=== PATIENT | female | born 1965 | race Caucasian/White ===

== ENCOUNTER 2017-02-12 20:19 | Emergency (ER) | payer OTHER ==
[~2017-02-12] VITALS: Ht 170.2 cm; Wt 125.5 kg
[2017-02-12] MEDS ORDERED: FURO20TA2 (20:55)
[2017-02-12] MEDS ORDERED: QUIN20TA17 (20:55)
[2017-02-12] MEDS ORDERED: FENO54TA2 (20:55)
[2017-02-12] MEDS ORDERED: FREEMIS42 (20:55)
[2017-02-12] MEDS ORDERED: AZEL0.1S3 (20:55)
[2017-02-12] MEDS ORDERED: FREETES (20:55)
[2017-02-12] MEDS ORDERED: GABA-283 (20:55)
[2017-02-12] MEDS ORDERED: D3-5CAP (20:55)
[2017-02-12] MEDS ORDERED: ASPI1TAB15 (20:55)
[2017-02-12] MEDS ORDERED: DULO1CAP3 (20:55)
[2017-02-12] MEDS ORDERED: OMEP20CA3 (20:55)
[2017-02-12] MEDS ORDERED: ONDA4TAB6 (20:55)
[2017-02-12] MEDS ORDERED: KETOROLAC 30 MG/ML VIAL (J1885) IV ONE (22:45)
[2017-02-12] MEDS ORDERED: NS 1,000 ML IV ONE (22:45)
[2017-02-12] MEDS ORDERED: DEXTROSE 50% 50 ML SYRINGE IV STA (23:14)
[2017-02-12 23:16] LABS: BASO # 0.1 K/mm3 (0.0-0.2); BASO % 0.8 % (0.0-1.0); EOS # 0.2 K/mm3 (0.0-0.50); EOS % 2.8 % (0.0-3.0); LARGE UNSTAINED CELL # 0.2 K/mm3 (0.0-0.4); LYMPH # 2.5 K/mm3 (1.5-4.5); MEAN CORPUSCULAR HEMOGLOBIN 30.2 pg (27.0-33.0); MEAN CORPUSCULAR HGB CONC 35.9 g/dl (32.0-36.5); MEAN CORPUSCULAR VOLUME 84.1 fl (80.0-96.0); MONO # 0.5 K/mm3 (0.0-0.8); MONO % 6.2 % (0.0-5.0); NEUTROPHILS % 54.2 % (36.0-66.0); PLATELET COUNT, AUTOMATED 254 k/mm3 (150-450); RED CELL DISTRIBUTION WIDTH 13.1 % (11.5-14.5); WHITE BLOOD COUNT 7.4 K/mm3 (4.0-10.0)
[2017-02-12 23:31] LABS: ALBUMIN/GLOBULIN RATIO 1.08 (1.00-1.93); BILIRUBIN,DIRECT 0.2 MG/DL (0.0-0.2); BILIRUBIN,TOTAL 0.6 MG/DL (0.2-1.0); CALCIUM LEVEL 9.3 MG/DL (8.5-10.1); CREATININE FOR GFR 1.18 MG/DL (0.55-1.02); GLOMERULAR FILTRATION RATE 50.8 (>51); POTASSIUM SERUM 3.6 MEQ/L (3.5-5.1); TOTAL PROTEIN 7.7 GM/DL (6.4-8.2)
[2017-02-12] MEDS ORDERED: ISOVUE-370 76% 100ML VIAL (Q9967) As Ordered ONE (23:34)
--- NOTE | 2017-02-13 00:50 | REPUSA ---
CLINICAL HISTORY: Abdominal pain. TECHNIQUE: Multiple axial, sagittal and coronal CT images were obtained through the abdomen and pelvi s after administration of intravenous contrast material. COMMENTS: The liver is moderately enlarged with decreased attenuation without mass or defect. There is no intra or extrahepatic biliary ductal dilatation. The spleen is mildly enlarged. The gallbladder is within normal limits. The pancreas is of normal contour and attenuation characteristics. There is no evidenc e of adrenal mass. Moderate left renal atrophy. This is a chronic finding. 1.5 cm left renal cyst. Both kidneys demonstrate prompt and equal nephrograms. There is no evidence of renal or ureteral mass. No renal or ureteral calculi are identified. There is no hydroureter or hydronephrosis. No evidence for appendicitis. Uncomplicated colonic diverticulosis. Diffuse thickening of the ascendi ng and transverse colon. No evidence for small or large bowel obstruction. There is no evidence of ab dominal ascites or lymphadenopathy. There is no evidence of intrinsic or extrinsic bladder mass. There is no pelvic ascites or lymphadeno violeta. Images of the lung bases show no evidence of pleural or parenchymal mass. There are no pleural effusi ons. The bony structures are free of lytic or blastic lesions. Multilevel degenerative changes are seen in volving the thoracolumbar spine. Scattered calcifications are seen involving the aorta and major branches compatible with atherosclero sis. IMPRESSION: Diffuse thickening of the ascending and transverse colon. Mild colitis. No perforation or abscess for mation. Cholecystectomy. Hepatomegaly with fatty liver infiltration. Fat containing umbilical hernia without incarceration. Chronic left renal atrophy. Thank you for your kind referral of this patient.
[2017-02-13] MEDS ORDERED: CIPR-249 PO (01:30)
[2017-02-13] MEDS ORDERED: FLAG500T PO (01:31)
[2017-02-13 02:01] VITALS: BP 133/68
[2017-03-22] MEDS ORDERED: NOVOINJ3 SQ (16:38)
[2017-03-22] MEDS ORDERED: MELO7.5T7 PO (22:13)
== END 2017-02-13 02:03 | disposition home or self-care (01) ==
LOC: M ED 20:19
DX: K52.9 Noninfective gastroenteritis and colitis, unspecified (principal); Z90.49 Acquired absence of other specified parts of digestive tract; K76.0 Fatty (change of) liver, not elsewhere classified; K42.9 Umbilical hernia without obstruction or gangrene; N26.9 Renal sclerosis, unspecified; E11.9 Type 2 diabetes mellitus without complications; I10 Essential (primary) hypertension; E78.5 Hyperlipidemia, unspecified; K21.9 Gastro-esophageal reflux disease without esophagitis; K57.90 Diverticulosis of intestine, part unspecified, without perforation or abscess without bleeding; Z87.442 Personal history of urinary calculi; G47.33 Obstructive sleep apnea (adult) (pediatric); Z87.891 Personal history of nicotine dependence; Z79.82 Long term (current) use of aspirin; Z79.899 Other long term (current) drug therapy
CPT/HCPCS: 74177; 80048; 80076; 81001; 83690; 85025; 96374; 96375; 99283; J1885; Q9967

== ENCOUNTER 2017-06-09 19:04 | Emergency (ER) | payer OTHER ==
[2017-06-09 22:09] LABS: BASO # 0.1 10^3/uL (0.0-0.2); BASO % 1.1 % (0.0-1.0); EOS # 0.1 10^3/uL (0.0-0.50); EOS % 1.9 % (0.0-3.0); HEMATOCRIT 40.6 % (36.0-47.0); HEMOGLOBIN 13.8 g/dl (12.0-16.0); IMMATURE GRANULOCYTE % 0.5 % (0-0); LYMPH # 2.4 10^3/uL (1.5-4.5); LYMPH % 31.6 % (24.0-44.0); MEAN CORPUSCULAR HEMOGLOBIN 28.2 pg (27.0-33.0); MEAN CORPUSCULAR VOLUME 82.9 fl (80.0-96.0); MONO # 0.5 10^3/uL (0.0-0.8); MONO % 6.4 % (0.0-5.0); NEUTROPHILS # 4.4 10^3/uL (1.8-7.7); NEUTROPHILS % 58.5 % (36.0-66.0); PLATELET COUNT, AUTOMATED 217 10^3/uL (150-450); RED CELL DISTRIBUTION WIDTH 13.4 % (11.5-14.5); WHITE BLOOD COUNT 7.5 10^3/uL (4.0-10.0)
[2017-06-09 22:42] LABS: ALBUMIN 4.1 GM/DL (3.2-5.2); ALBUMIN/GLOBULIN RATIO 1.24 (1.00-1.93); ALKALINE PHOSPHATASE 50 U/L (45-117); ALT/SGPT 34 U/L (12-78); ANION GAP 7 MEQ/L (8-16); AST/SGOT 26 U/L (7-37); BILIRUBIN,DIRECT 0.2 MG/DL (0.0-0.2); BILIRUBIN,TOTAL 0.9 MG/DL (0.2-1.0); BLOOD UREA NITROGEN 13 MG/DL (7-18); CARBON DIOXIDE LEVEL 29 MEQ/L (21-32); CHLORIDE LEVEL 105 MEQ/L (98-107); CREATININE FOR GFR 1.13 MG/DL (0.55-1.02); GLOMERULAR FILTRATION RATE 53.4 (>51); GLUCOSE, FASTING 83 MG/DL (70-105); LIPASE 162 U/L (73-393); POTASSIUM SERUM 3.8 MEQ/L (3.5-5.1); SODIUM LEVEL 141 MEQ/L (136-145); TOTAL PROTEIN 7.4 GM/DL (6.4-8.2)
[2017-06-09] MEDS ORDERED: ISOVUE-370 76% 100ML VIAL (Q9967) As Ordered (22:44)
[2017-06-09] MEDS: ONDANSETRON 4MG/2ML VIAL (J2405) IV (22:46)
[2017-06-09] MEDS: NS 1,000 ML IV (22:46)
[2017-06-09] MEDS: MORPHINE 4 MG/ML 1ML SYRINGE IV (22:47)
[2017-06-09 23:45] LABS: KETONE, URINE AUTO RFX NEGATIVE (NEGATIVE); MUCUS, URINE RFX SMALL (NEGATIVE); NITRITE, URINE AUTO RFX NEGATIVE (NEGATIVE); RBC, URINE AUTO RFX 2 /HPF (0-3); SPECIFIC GRAVITY UR AUTO RFX 1.017 (1.002-1.035); SQUAM EPITHELIAL CELL UR AURFX 6 /HPF (0-6); WBC, URINE AUTO RFX 8 /HPF (0-3)
[2017-06-10 00:08] LABS: LEUKOCYTE ESTERASE UR AUTO RFX 1+ (NEGATIVE)
== END 2017-06-10 00:28 | disposition home or self-care (01) ==
LOC: M ED 06-10 00:28
DX: R10.11 Right upper quadrant pain (principal); R10.31 Right lower quadrant pain; G47.30 Sleep apnea, unspecified; Z87.442 Personal history of urinary calculi; E11.9 Type 2 diabetes mellitus without complications; K76.0 Fatty (change of) liver, not elsewhere classified; Z79.82 Long term (current) use of aspirin; Z79.4 Long term (current) use of insulin; Z79.899 Other long term (current) drug therapy
CPT/HCPCS: J2405

== ENCOUNTER 2019-03-07 10:35 | Inpatient (IN) | payer OTHER ==
[~2019-03-07] VITALS: Ht 167.6 cm; Wt 120.0 kg
[~2019-03-07 10:35] MED LIST: ASPI1TAB15 PO; AZEL0.1S3; BENT10CA PO; CIPR-249 PO; CLAR10CA3 PO; D3-5CAP PO; DICY20TA11 PO; DULO1CAP6; DULO30CA9 PO; FENO54TA2; FERR1TAB8; FLAG500T PO; FREEMIS42; FREETES; FURO20TA2; GABA-845 PO; INSULADS INJ; LIDO5DIS41 TD; MELO7.5T7 PO; NOVOINJ3 SQ; OMEP10CASR PO; OMEP20CA4; ONDA4TAB6; OXYC1TAB23 PO; QUIN1TAB3 PO
[2019-03-07 11:12] VITALS: BP 140/70
[2019-03-07] MEDS ORDERED: OMEP20CA4 PO (11:45)
[2019-03-07] MEDS ORDERED: CETI10TA8 PO (11:45)
[2019-03-07] MEDS ORDERED: ADME100I SC (11:45)
[2019-03-07] MEDS ORDERED: BASA100I SC (11:45)
[2019-03-07] MEDS ORDERED: IBUP80TA PO (11:45)
[2019-03-07] MEDS ORDERED: GLUCAGON FOR INJ 1 MG VIAL (J1610) SC PRN (12:30)
[2019-03-07] MEDS ORDERED: GLUCOSE 4 GM CHEW TABLET PO PRN (12:30)
[2019-03-07] MEDS ORDERED: DEXTROSE 50% 50 ML SYRINGE IV PRN (12:30)
--- NOTE | 2019-03-07 12:49 | CR.PDOC ---
General Date of Consultation: Mar 07, 2019 Consultation CONSULT FOR: Orthopedic Surgery REASON FOR CONSULT: Medical Optimization HISTORY OF PRESENT ILLNESS: This is a 54 year old female who 7 days ago had a low blood sugar while climbing 3 steps into her house and had a fall backwards. Her son heard the fall and provided glucose tablets which resolved her symptoms. She denies any seizure or loss of consciousness but does state she hit her head. She had significant pain and presented to urgent care who referred to orthopedic where she was seen 6 days ago. It was at that time that she was planned for elective admission and surigcal correction of broken left wrist. Patient continues to complain of pain in her left leg at this time and pressure while ambulating, she has been mostly bedridden since her fall. She is not very active at her baseline limited by fibromyalgia but denies any cardiac history. She sates she had a stress test greater than 10 years ago which was normal and denies exertional symptoms.Otherwise patient denies weight loss, hair loss, headache, visual changes, chest pain, shortness of breath, cough, nausea, vomiting, diarrhea, abdominal pain, muscle aches, worsening arthritis, change in moo PAST MEDICAL HISTORY: 1.Hypertension. 2. Dyslipidemia. 3. diabetes mellitus. 4. Gastroesophageal reflux disease 5. Obstructive sleep apnea on CPAP 6. Neuropathy 7. COPD 8. Fibromyalgia 9. Seasonal allergies 10. Diverticulosis. HOME MEDICATIONS: Please see below. ALLERGIES: Please see below PAST SURGICAL HISTORY: 1. Colonoscopy and endoscopy. 2. Cholecystectomy. 3. Cervical diskectomy with 3 surgeries. 4. Tonsilectomy 5. Tubal Ligation SOCIAL HISTORY: Lives with:so, Employment: not working, Tobacco use:formaer 20 pack year. ETOH: rare, 2 drinks on birthday, Illicit drug use: denies, CODE STATUS: full code FAMILY HISTORYReviewed and noncontributor REVIEW OF SYSTEMS:10 systems reviewed and negative other than HP PHYSICAL EXAMINATION: VITAL SIGNS: Please see below GENERAL:Pleasant obese female sitting up in bed awake alert oriented speaking in complete sentences no acute distres HEENT:Moist mucous membranes no elevation in CV, mild right eye subconjunctival hemorrhage CARDIOVASCULAR:S1 S2 regular no additional heart sounds appreciated RESPIRATORY:Clear to auscultation bilaterally ABDOMINAL:Bowel sounds present abdomen soft and nontende, obese EXTREMITIES:No clubbing cyanosis or apolinar, there is a right pretibial abrasion, ecchymosis bilaterally NEUROLOGICAL:Spontaneously moves all 4 extremities cranial 2 through 12 grossly intact no gross focal deficits appreciate PSYCHOLOGICAL:Appropriat LABORATORY DATA: See below. MICROBIOLOGY: Please see below. IMAGING:non ASSESSMENT & PLAN: This is a54 year old female status post fall 1 week ago for elective admission for Left wrist surger. PROBLEMS: 1Fall: Appears to be secondary to hypoglycemia, patient has been trying to lose weight and has been titrating down her insulin dose at home but believes in this process she has at times taken too much. Will place on sliding scale only, check an A1c. Given that she has had a fall with head trauma I will check CT head and CT cervical spine given her acute on chronic neck pain. I will also check plain films or right ankle, tib/fib and knee 2Wrist fracture:In terms of risk stratification, we will follow up the are mentioned workup. I will also check an EKG. Patient denies any significant cardiac history of negative stress test greater than 10 years ago her baseline functional status is quite limited secondary to fibromyalgia. I suspect she is at moderate risk for perioperative complication however should her EKG the unchanged or unremarkable no further testing required prior to surger 3Peripheral neuropathy: Continue with Neurontin secondary to diabete 4. Diabetes mellitus: As outlined above 5. Seasonal allergies: Continue with Zyrtec 6. Gastroesophageal reflux disease: Continue with omeprazole 7. Fibromyalgia: Continue with duloxetine DVT PROPHYLAXISAs per orthopedic surger Thank you for this interesting consult, we will continue to follow along with you. Please Vocera secure text or call with any specific questions. Vital Signs/I&O Vital Signs Date Time Temp Pulse Resp B/P (MAP) Pulse Ox O2 Delivery O2 Flow Rate FiO2 03/07/19 11:12 97.6 87 18 140/70 (93) 97 Room Air Laboratory Data Labs 24H Laboratory Tests 2 03/07/19 12:03: Bedside Glucose (Misc Panel) 217H Allergies Coded Allergies: No Known Allergies (Unverified , 02/12/17) Home Medications Scheduled Aspirin (Aspirin EC) 81 Mg Tab, 81 MG PO DAILY, (Reported) Cetirizine HCl (Cetirizine HCl) 10 Mg Tablet, 10 MG PO DAILY, (Reported) Cholecalciferol (Vitamin D3) (D3-50) 50,000 Unit Cap, 50,000 UNIT PO QMONTH, (Reported) Duloxetine Hcl (Duloxetine HCl) 30 Mg Cap, 30 MG PO DAILY, (Reported) Gabapentin (Gabapentin) 400 Mg Cap, 400 MG PO TID, (Reported) Insulin Glargine,Hum.rec.anlog (Basaglar Kwikpen U-100) 100 Unit/1 Ml Insuln.pen, 80 UNIT SC BID, (Reported) Insulin Lispro (Admelog) 100 Unit/1 Ml Vial, 1 DOSE SC ACHS, (Reported) PER SLIDING SCALE Omeprazole (Omeprazole) 20 Mg Capsule.dr, 20 MG PO BID, (Reported) Quinapril Hcl (Quinapril HCl) 20 Mg Tab, 20 MG PO DAILY, (Reported) Scheduled PRN Dicyclomine HCl (Dicyclomine HCl) 20 Mg Tablet, 20 MG PO Q6H PRN for ABDOMINAL PAIN, (Reported) Ibuprofen (Ibuprofen) 800 Mg Tablet, 800 MG PO TID PRN for PAIN, (Reported) Oxycodone HCl/Acetaminophen (Oxycodone-Acetaminophen 5-325) 1 Each Tablet, 1 TAB PO QID PRN for PAIN , (Reported) ISHAN FALL MD Mar 07, 2019 12:49
--- NOTE | 2019-03-07 13:01 | REP ---
Right knee radiographs: Four views. History: Injury in a fall. Findings: The patient was unable to position for sunrise view. Four views right knee demonstrate mild patellofemoral spur formation. There is diffuse osteopenia. No fracture or subluxation is seen. Impression: Mild spurring. Diffuse osteopenia. No fracture noted. [place] view could not be obtained. Electronically Signed by Sotero Oliver MD 03/07/2019 12:53 P
--- NOTE | 2019-03-07 13:02 | REP ---
Right tib-fib series: Four views. History: Injury in a fall. Findings: There is mild soft tissue swelling anteromedially. No fractures seen. Achilles and plantar calcaneal spurring is noted. Minimal vascular calcification is seen. Patellar spurring is noted. Impression: No fracture noted. Electronically Signed by Sotero Oliver MD 03/07/2019 12:54 P
--- NOTE | 2019-03-07 13:26 | REP ---
Right ankle series: Four views. History: Injury in a fall. Findings: Four views right ankle demonstrate prominent Achilles and plantar calcaneal spurring. Ankle mortise is intact. There is subcortical radiolucency in the medial talar dome consistent with cyst formation. This is not an acute abnormality. It may reflect osteochondritis desiccans. Mild tibiotalar spurring. Impression: No acute bony abnormality. There is mild lateral soft tissue swelling. Heel spurring is noted. Subcortical cyst formation is seen in the medial talar dome. Electronically Signed by Sotero Oliver MD 03/07/2019 06:24 P
[2019-03-07 13:37] LABS: HEMATOCRIT 36.9 % (36.0-47.0); HEMOGLOBIN 12.3 g/dl (12.0-15.5); MEAN CORPUSCULAR HGB CONC 33.3 g/dl (32.0-36.5); PLATELET COUNT, AUTOMATED 228 10^3/uL (150-450); RED BLOOD COUNT 4.24 10^6/uL (4.00-5.40); WHITE BLOOD COUNT 6.7 10^3/uL (4.0-10.0)
[2019-03-07] MEDS: HumaLOG INSULIN (NovoLOG) PER UNIT SC SCH ×3 (13:55→21:00)
[2019-03-07 14:27] LABS: ALBUMIN 3.1 GM/DL (3.2-5.2); ALT/SGPT 21 U/L (12-78); BILIRUBIN,TOTAL 1.2 MG/DL (0.2-1.0); BLOOD UREA NITROGEN 11 MG/DL (7-18); CALCIUM LEVEL 8.8 MG/DL (8.5-10.1); CARBON DIOXIDE LEVEL 30 MEQ/L (21-32); CHLORIDE LEVEL 104 MEQ/L (98-107); CREATININE FOR GFR 0.82 MG/DL (0.55-1.30); GLOMERULAR FILTRATION RATE > 60.0 (>51); GLUCOSE, FASTING 258 MG/DL (70-100); POTASSIUM SERUM 3.7 MEQ/L (3.5-5.1); SODIUM LEVEL 140 MEQ/L (136-145); TOTAL PROTEIN 5.9 GM/DL (6.4-8.2)
[2019-03-07 14:39] LABS: HEMOGLOBIN A1c 7.2 %
[2019-03-07] MEDS ORDERED: PERCOCET 5MG/325MG TAB PO PRN ×2 (15:00)
[2019-03-07] MEDS ORDERED: oxyCODONE 5MG TAB PO PRN (15:00)
--- NOTE | 2019-03-07 15:07 | REP ---
Two views chest: 03/07/2019. Indication: Preoperative assessment. Comparison: None. Findings: The lungs are clear. There is no pleural effusion or pneumothorax. Cardiac silhouette is borderline enlarged. Postoperative sequelae of the cervical spine are noted status post ACDF. Impression: No acute cardiopulmonary disease. Electronically Signed by Beau Foss DO 03/07/2019 02:59 P
--- NOTE | 2019-03-07 15:11 | REP ---
CT brain: 03/07/2019. Indication: Head trauma. Technique: Unenhanced axial CT images of the brain were obtained from skull base to vertex. Findings: There is no intracranial hemorrhage, acute cortical infarction, mass effect, hydrocephalus or acute calvarial fracture. Impression: No acute intracranial process. Electronically Signed by Beau Foss DO 03/07/2019 03:02 P
--- NOTE | 2019-03-07 15:14 | ECGEPIP ---
[facility] Test Date: 2019-03-07 Pat Name: PIA GARSIA Department: Room: [place] [address] Gender: Female Poiser: ZUHAIR : 1965 Requested By: ISHAN FALL Order Number: [id number] Reading MD: Corazon Mckeon Measurements Intervals [place] Rate: 78 P: 40 FL: 190 QRS: 9 QRSD: 91 T: 17 QT: 378 QTc: 432 Interpretive Statements SINUS RHYTHM 1ST DEGREE BLOCK LOW QRS VOLTAGE IN PRECORDIAL LEADS NONSPECIFIC STT-WAVE ABNORMALITY NO PRIOR Electronically Signed on 03-07-2019 15:13:36 EDT by Corazon Mckeon
--- NOTE | 2019-03-07 15:18 | REP ---
CT cervical spine: 03/07/2019. Indication: Cervical spine trauma. Comparison: None. Technique: Axial unenhanced CT images of the cervical spine were obtained with sagittal and coronal reconstructions provided. Findings: The patient is status post C5 - C7 ACDF with the surgical hardware intact. The presence of the hardware renders evaluation of the anatomy adjacent suboptimal secondary to streak artifact. There is straightening of the cervical lordosis. There is no acute fracture. There is no significant subluxation/dislocation. The spinal canal appears widely patent. The left palatine tonsil is prominent with a few tonsils noted. No area of low attenuation is present within the tonsils. The visualized lungs are clear. Impression: No fracture or additional acute post traumatic osseous injuries of the cervical spine. Electronically Signed by Beau Foss DO 03/07/2019 03:10 P
[2019-03-07] MEDS: DULoxetine 30 MG CAP (CYMBALTA) PO SCH (15:53)
[2019-03-07] MEDS: GABAPENTIN 400 MG CAP PO SCH ×2 (15:53→21:22)
[2019-03-07] MEDS: OMEPRAZOLE 20 MG CAP PO SCH ×2 (15:53→21:22)
[2019-03-07] MEDS: CETIRIZINE (ZyrTEC) 10 MG TAB PO SCH (15:54)
[2019-03-07] MEDS: ceFAZolin SOD 1 GM in D5W MINI-BAG PLUS 50 ML IV SCH ×2 (15:54→21:22)
[2019-03-07] MEDS: oxyCODONE 5MG TAB PO PRN ×2 (15:55→21:24)
[2019-03-07 17:05] LABS: INR 1.05; PARTIAL THROMBOPLASTIN TIME 32.6 SECONDS (25.0-38.4); PROTHROMBIN TIME 13.4 SECONDS (11.8-14.0)
[2019-03-07 17:11] LABS: BLOOD UREA NITROGEN 11 MG/DL (7-18); CALCIUM LEVEL 8.6 MG/DL (8.5-10.1); CARBON DIOXIDE LEVEL 30 MEQ/L (21-32); CHLORIDE LEVEL 103 MEQ/L (98-107); CREATININE FOR GFR 0.94 MG/DL (0.55-1.30); GLOMERULAR FILTRATION RATE > 60.0 (>51); GLUCOSE, FASTING 183 MG/DL (70-100); POTASSIUM SERUM 3.2 MEQ/L (3.5-5.1); SODIUM LEVEL 140 MEQ/L (136-145)
[2019-03-07 20:17] VITALS: BP 179/68
[2019-03-07 20:22] VITALS: BP 168/88
[2019-03-08] MEDS: oxyCODONE 5MG TAB PO PRN ×3 (01:38→21:35)
[2019-03-08 05:33] VITALS: BP 96/65
[2019-03-08] MEDS: ceFAZolin SOD 1 GM in D5W MINI-BAG PLUS 50 ML IV SCH ×3 (05:59→21:36)
[2019-03-08] MEDS: LR 1,000 ML IV SCH ×2 (06:08→21:35)
[2019-03-08] MEDS: HumaLOG INSULIN (NovoLOG) PER UNIT SC SCH ×4 (07:30→21:36)
[2019-03-08] MEDS: OMEPRAZOLE 20 MG CAP PO SCH ×2 (07:39→21:35)
[2019-03-08] MEDS: CETIRIZINE (ZyrTEC) 10 MG TAB PO SCH (07:39)
[2019-03-08] MEDS: GABAPENTIN 400 MG CAP PO SCH ×3 (07:39→21:35)
[2019-03-08] MEDS: DULoxetine 30 MG CAP (CYMBALTA) PO SCH (07:39)
--- NOTE | 2019-03-08 07:51 | IPNPDOC ---
Date Seen Progress Note she is at moderate risk for perioperative complication however she is presently medically optimized no further testing required prior to surgery VS, I&O, 24H, [place] Vital Signs/I&O Vital Signs Date Time Temp Pulse Resp B/P (MAP) Pulse Ox O2 Delivery O2 Flow Rate FiO2 03/08/19 06:29 16 03/08/19 05:33 96.0 83 96/65 (75) 97 Room Air I&O- Last 24 Hours up to 6 AM 03/08/19 06:00 Intake Total 1200 ml Output Total 0 ml Balance 1200 ml Laboratory Data 24H LABS Laboratory Tests 2 03/07/19 12:03: Bedside Glucose (Misc Panel) 217H 03/07/19 13:15: Nucleated Red Blood Cells % (auto) 0.0, Anion Gap 6L, Glomerular Filtration Rate > 60.0, Estimated Mean Plasma Glucose 160H, Hemoglobin A1c 7.2, Calcium Level 8.8, Total Bilirubin 1.2H, Aspartate Amino Transf (AST/SGOT) 18, Alanine Aminotransferase (ALT/SGPT) 21, Alkaline Phosphatase 83, Total Protein 5.9L, Albumin 3.1L, Albumin/Globulin Ratio 1.11 03/07/19 16:20: Anion Gap 7L, Glomerular Filtration Rate > 60.0, Calcium Level 8.6, Erythrocyte Sedimentation Rate 52H, Prothrombin Time 13.4, Prothromb Time International Ratio 1.05, Activated Partial Thromboplast Time 32.6 03/07/19 16:57: Bedside Glucose (Misc Panel) 230H 03/07/19 20:18: Bedside Glucose (Misc Panel) 218H 03/08/19 07:24: Bedside Glucose (Misc Panel) 156H CBC/BMP Laboratory Tests 03/07/19 13:15 03/07/19 16:20 ISHAN FALL MD Mar 08, 2019 07:51
[2019-03-08 10:56] LABS: APPEARANCE, URINE CLEAR (CLEAR); BACTERIA, URINE AUTO NEGATIVE (NEGATIVE); BILIRUBIN, URINE AUTO NEGATIVE (NEGATIVE); BLOOD, URINE BLOOD NEGATIVE (NEGATIVE); CALCIUM OXALATE CRYSTALS SMALL; COLOR, URINE YELLOW (YELLOW); GLUCOSE, URINE (UA) AUTO NEGATIVE (NEGATIVE); KETONE, URINE AUTO NEGATIVE (NEGATIVE); LEUKOCYTE ESTERASE, URINE AUTO NEGATIVE (NEGATIVE); MUCUS, URINE SMALL (NEGATIVE); NITRITE, URINE AUTO NEGATIVE (NEGATIVE); PROTEIN, URINE AUTO NEGATIVE (NEGATIVE); RBC, URINE AUTO 2 /HPF (0-3); SPECIFIC GRAVITY URINE AUTO 1.019 (1.002-1.035); SQUAMOUS EPITHELIAL CELL UR AU 2 /HPF (0-6); UROBILINOGEN, URINE AUTO 0.2 mg/dL (0.0-2.0); WBC, URINE AUTO 4 /HPF (0-3)
[2019-03-08 12:29] VITALS: BP 136/60
[2019-03-08] MEDS ORDERED: fentaNYL 100 MCG/2 ML INJECTION (J3010) As Ordered ONE (13:47)
[2019-03-08] MEDS ORDERED: MIDAZOLAM INJ 2 MG/2 ML VIAL (J2250) As Ordered ONE ×2 (13:47→14:30)
[2019-03-08] MEDS ORDERED: fentaNYL 100 MCG/2 ML INJECTION (J3010) IV ONE (14:30)
[2019-03-08] MEDS ORDERED: PROPOFOL 200 MG/20 ML VIAL As Ordered ONE (14:30)
[2019-03-08] MEDS ORDERED: ROCURONIUM BROMIDE 50 MG/5 ML VIAL As Ordered ONE (14:30)
[2019-03-08] MEDS ORDERED: ONDANSETRON 4MG/2ML VIAL (J2405) As Ordered ONE (14:30)
[2019-03-08] MEDS ORDERED: LIDOCAINE 2% INJ 100 MG/5 ML SDV (FOR ANES.) As Ordered ONE (14:30)
[2019-03-08] MEDS ORDERED: SUGAMMADEX SODIUM 500 MG/5 ML VIAL (BRIDION) As Ordered ONE (14:30)
[2019-03-08] MEDS ORDERED: dexameTHASONE 4 MG/ML 1ML VIAL (J1100) As Ordered ONE (14:30)
[2019-03-08] MEDS ORDERED: fentaNYL 250 MCG/5 ML INJECTION (J3010) As Ordered ONE (14:30)
[2019-03-08] MEDS ORDERED: METOCLOPRAMIDE INJ 10MG/2ML VIAL (J2765) As Ordered ONE (14:30)
[2019-03-08] MEDS ORDERED: MIDAZOLAM INJ 2 MG/2 ML VIAL (J2250) IV ONE (14:30)
[2019-03-08] MEDS ORDERED: ROPIvacaine 0.5% 30 ML INJECTION (J2795 PER 1MG) ONE (15:33)
[2019-03-08] MEDS ORDERED: LIDOCAINE 1% MDV 20ML VIAL ONE (15:33)
[2019-03-08] MEDS ORDERED: dexameTHASONE 10 MG/1 ML VIAL PRES.FREE (J1100) ONE (15:33)
[2019-03-08] MEDS ORDERED: ceFAZolin 2 GM/D5W 50 ML IV BAG (J0690 PER 500MG) As Ordered ONE (16:11)
[2019-03-08] MEDS ORDERED: ACETAMINOPHEN 1000MG 100ML IV BTL (OFIRMEV) (J0131 PER 10MG) As Ordered ONE (16:16)
[2019-03-08] MEDS ORDERED: ePHEDrine SULFATE 25 MG/5 ML(5MG/ML) SYRINGE As Ordered ONE (17:04)
[2019-03-08] MEDS ORDERED: PHENYLephrine HCL 500 MCG/5 ML (100MCG/ML) SYRINGE (J2370) As Ordered ONE (17:04)
[2019-03-08] MEDS ORDERED: PERCOCET 5MG/325MG TAB PO PRN (17:45)
[2019-03-08] MEDS ORDERED: LR 1,000 ML IV SCH (17:45)
[2019-03-08] MEDS ORDERED: ONDANSETRON 4MG/2ML VIAL (J2405) IV PRN (17:45)
[2019-03-08] MEDS ORDERED: HYDROMORPHONE HCL 0.5 MG/ 0.5 ML SYRINGE (J1170 PER 1) IV PRN (17:45)
[2019-03-08] MEDS ORDERED: fentaNYL 100 MCG/2 ML INJECTION (J3010) IV PRN (17:45)
--- NOTE | 2019-03-08 18:08 | REP ---
Left wrist: 24 views: History: Intraoperative imaging. ORIF distal radius. 61 seconds of fluoroscopy time is reported. Findings: A sequence of 24 last image hold fluoroscopically obtained spot radiographs of the left wrist document open reduction and internal fixation volar fusion plating. Electronically Signed by Sotero Oliver MD 03/08/2019 07:51 P
[2019-03-08 18:22] VITALS: BP 135/69
--- NOTE | 2019-03-08 18:26 | RO ---
DATE OF PROCEDURE: 03/08/2019 PREPROCEDURE DIAGNOSIS: Left intraarticular distal radius fracture, comminuted. POSTPROCEDURE DIAGNOSIS: Left intraarticular distal radius fracture, comminuted. PROCEDURE: Left open reduction internal fixation distal radius. SURGEON: Clyde Peñaloza MD MERCHANDISING EXECUTION MANAGER: Miryea Kuhn; she was instrumental for eason portion of the procedure, for retraction. ANESTHESIA: General. INDICATIONS: This is a 54-year-old female who presented with multiple comorbidities with a very comminuted and displaced distal radius fracture. Due to the very distal extent, I felt that closed reduction would not be adequate in order to maintain fixation, and it was well outside the acceptable limitations. All of the risks and benefits were discussed, including but not limited to infection, damage to surrounding structures, malunion, nonunion. The patient expressed understanding and in agreement with these plans. She had to be direct admitted due to her multiple comorbidities for operative clearance, so she was admitted on 03/07/2019 and cleared by medicine on 03/08/2019. COMPLICATIONS: None. PREOPERATIVE ANTIBIOTICS: The patient had been on Ancef for left lower extremity cellulitis but also got 2 grams of Ancef prior to start of the surgery. TOURNIQUET TIME: 51 minutes. DESCRIPTION OF PROCEDURE: The patient was taken back to the operating room (OR) and was supine on the stretcher. She was moved over to the operative bed where she underwent general anesthesia, at which point we prepped and draped the left arm in the usual fashion. At which point, we had a time-out to confirm site, side and surgery. Once all in agreement, we elevated the tourniquet up to 250 mmHg. We then made a longitudinal incision over the flexor carpi radialis (FCR) tendon. We incised the FCR sheath and retracted the FCR tendon radially, at which point we excised the deeper portion of the sheath. We then encountered flexor pollicis longus (FPL), which was retracted ulnarly. We then encountered pronator quadratus, which was lifted off the proximal shaft of the radius along with the intraarticular portions. We then identified brachial radialis and released it from the radial styloid, careful to differentiate it from the first dorsal compartment tendon. Once this was done and we made a closed reduction maneuver with the aid of Dover elevator and direct manipulation, we then used a 1.6 K-wire through the radial styloid to hold the reduction in place. We confirmed this on AP and lateral x-rays. We then picked a two-hole distal radius variable angle Synthes plate. We lined it up on AP and lateral and pinned it into place. We then placed four distal locking screws, two in lunate facet, one in the scaphoid facet, and one in the radial styloid. Once this was done, we confirmed that none of them were in the joint and protruding dorsally, at which point we reduced the plate to the shaft using two cortical screws with a good fixation, and we confirmed alignment on AP and lateral. I was very happy with this reduction. We then irrigated the wound thoroughly, closed pronator quadratus over the plate with #3-0 Vicryl, then subcutaneous tissue with #3-0 Vicryl, and we then stapled the skin closed, placed Adaptic gauze, sterile Webril, and then volar-based splint, and an Omid wrap. The tourniquet was let down at 51 minutes. The patient was then extubated and taken to the post-anesthesia care unit (PACU). POSTOPERATIVE PLAN: The patient will work on pain control. The plan will be to discharge her tomorrow. She will be discharged with 7 days of Keflex for her left lower extremity cellulitis. We will see her back in the office in 2 weeks, at which point we will reevaluate the wound and remove the jb, and convert over to a removable brace which she will wear almost constantly for the next 4 weeks, except for hygiene. And at 6 weeks, we will start weaning her off the brace.
[2019-03-08 19:38] VITALS: BP 126/56
[2019-03-09] MEDS: oxyCODONE 5MG TAB PO PRN ×2 (02:30→06:37)
[2019-03-09 06:00] VITALS: BP 148/88
[2019-03-09] MEDS ORDERED: OXYC-517 PO (06:29)
[2019-03-09] MEDS: ceFAZolin SOD 1 GM in D5W MINI-BAG PLUS 50 ML IV SCH (06:37)
[2019-03-09] MEDS: OMEPRAZOLE 20 MG CAP PO SCH (08:17)
[2019-03-09] MEDS: CETIRIZINE (ZyrTEC) 10 MG TAB PO SCH (08:17)
[2019-03-09] MEDS: DULoxetine 30 MG CAP (CYMBALTA) PO SCH (08:17)
[2019-03-09] MEDS: HumaLOG INSULIN (NovoLOG) PER UNIT SC SCH ×2 (08:19→12:00)
--- NOTE | 2019-03-09 08:26 | IPN ---
DATE OF SERVICE: 03/09/2019 CHIEF COMPLAINT: Postoperative day #1 left distal radius open reduction internal fixation (ORIF). HISTORY OF PRESENT ILLNESS: This 54-year-old female is seen today on the sena postoperative day #1. She feels like the nerve block is slowly wearing off, but there is still a little bit of difficulty left in the shoulder. Other than that, she is comfortable. PHYSICAL EXAMINATION: 54-year-old female. Splint is in situ. No swelling, redness or drainage from the nerve block site. Vital signs are stable. Hands warm and well perfused. She is able to make her fingers flex and extend her thumb. She does have good sensation in the fingers, but slightly altered throughout. ASSESSMENT/PLAN: 54-year-old female who can be discharged home today. Follow up in the office with Dr. Peñaloza. She is well aware of the plan.
--- NOTE | 2019-03-09 08:45 | REP ---
Left wrist: Four views. History: Postop. Findings: Skin jb are noted along the lateral aspect of the wrist adjacent to the distal radius. A screw plate fixation device is seen in place transfixing a comminuted and somewhat impacted distal radial fracture in good position. There is associated soft-tissue swelling. X-rays are taken through overlying splint material. Electronically Signed by Sotero Oliver MD 03/09/2019 08:37 A
[2019-03-09] MEDS: GABAPENTIN 400 MG CAP PO SCH (08:46)
[2019-03-09] MEDS ORDERED: FLUBLOK(EGG FREE)(QUAD)INFLUENZA VACC 0.5ML SYRINGE (90682)18YRS&OLDER IM ONE (09:00)
--- NOTE | 2019-03-11 16:21 | DSES ---
DATE OF ADMISSION: 03/07/2019 DATE OF DISCHARGE: 03/09/2019 ATTENDING PHYSICIAN: Dr. Clyde Peñaloza ADMISSION DIAGNOSIS: Left intra-articular distal radius fracture. OTHER DIAGNOSES: Hypertension, dyslipidemia, diabetes mellitus, gastroesophageal reflux disease (GERD), obstructive sleep apnea and neuropathy, chronic obstructive pulmonary disease (COPD), fibromyalgia, seasonal allergies, and diverticulosis. DISCHARGE DIAGNOSIS: Intra-articular distal left distal radius fracture status post open reduction, internal fixation (ORIF). OPERATION PERFORMED: ORIF left distal radius fracture. HISTORY: This is a 54-year-old female patient who had an episode of hypoglycemia and a fall while at her home about 1 week prior to admission. She was found to have a left distal radius intra-articular fracture. HOSPITAL COURSE: The patient was admitted on the day of surgery and underwent a left distal radius open reduction, internal fixation which was uneventful. She did well in the postoperative period. Pain was controlled on the day of discharge. She will followup with Dr. Peñaloza in the office in 10-14 days. She will resume her preoperative medications and diet. She was given instructions to include but not limited to cast care, wound monitoring and activity modifications. Please refer to the medical record for further details.
== END 2019-03-09 12:40 | disposition home or self-care (01) | DRG 315 ==
LOC: M SDC 10:35 → M MS5PR 10:36
PROVIDERS: ADMIT Orthopaedic Surgery Hand Surgery; ATTEND Orthopaedic Surgery Hand Surgery
PROC: 0PSJ04Z Reposition Left Radius with Internal Fixation Device, Open Approach (ICD-10-PCS; principal; 2019-03-08 12:30)
DX: S52.502A Unspecified fracture of the lower end of left radius, initial encounter for closed fracture (principal); E11.40 Type 2 diabetes mellitus with diabetic neuropathy, unspecified; I10 Essential (primary) hypertension; G47.33 Obstructive sleep apnea (adult) (pediatric); E78.5 Hyperlipidemia, unspecified; M79.7 Fibromyalgia; J44.9 Chronic obstructive pulmonary disease, unspecified; K57.30 Diverticulosis of large intestine without perforation or abscess without bleeding; K21.9 Gastro-esophageal reflux disease without esophagitis; Z79.82 Long term (current) use of aspirin; Z79.899 Other long term (current) drug therapy; Z79.4 Long term (current) use of insulin; W10.9XXA Fall (on) (from) unspecified stairs and steps, initial encounter; Y92.009 Unspecified place in unspecified non-institutional (private) residence as the place of occurrence of the external cause

== ENCOUNTER 2019-10-27 15:56 | Emergency (ER) | payer OTHER ==
[~2019-10-27] VITALS: Ht 167.6 cm; Wt 106.8 kg
[~2019-10-27 15:56] MED LIST changes: +ADME100I SC; +BASA100I SC; +CETI10TA8 PO; +IBUP80TA PO; +OMEP1CAP73; +OMEP1CAP73 PO; -OMEP20CA4; +OXYC-517 PO
[2019-10-27 15:57] VITALS: BP 161/70
[2019-10-27] MEDS ORDERED: IBUP-1022 PO (16:39)
[2019-10-27] MEDS ORDERED: AUGM875T28 PO (16:39)
[2019-10-27] MEDS ORDERED: AUGMENTIN 875 MG TAB PO ONE (16:45)
[2019-10-27] MEDS ORDERED: IBUPROFEN 600MG TAB PO ONE (16:45)
== END 2019-10-27 16:52 | disposition home or self-care (01) ==
LOC: M ED 15:56
DX: K02.9 Dental caries, unspecified (principal)

== ENCOUNTER 2021-11-27 21:39 | Emergency (ER) | payer OTHER ==
[~2021-11-27] VITALS: Ht 167.6 cm; Wt 113.5 kg
[~2021-11-27 21:39] MED LIST changes: +ASPI-546 PO; -ASPI1TAB15 PO; +AUGM875T28 PO; +CETI-25 PO; -CETI10TA8 PO; -DICY20TA11 PO; +DICY20TA20 PO; +FURO20TA2 PO; +GABA-283 PO; -GABA-845 PO; +IBUP-1022 PO; +ZOLO100T PO
[2021-11-27 21:40] VITALS: BP 130/58
[2021-11-28 01:43] LABS: BASO # 0.1 10^3/uL (0.0-0.2); BASO % 1.2 % (0.0-1.0); EOS # 0.1 10^3/uL (0.0-0.5); EOS % 2.2 % (0.0-3.0); HEMATOCRIT 38.2 % (36.0-47.0); HEMOGLOBIN 12.6 g/dl (12.0-15.5); LYMPH # 2.1 10^3/uL (1.5-5.0); MEAN CORPUSCULAR HEMOGLOBIN 28.2 pg (27.0-33.0); MEAN CORPUSCULAR VOLUME 85.5 fl (80.0-96.0); MONO # 0.4 10^3/uL (0.0-0.8); MONO % 5.8 % (2.0-8.0); NEUTROPHILS # 3.7 10^3/uL (1.5-8.5); NEUTROPHILS % 58.2 % (36.0-66.0); PLATELET COUNT, AUTOMATED 186 10^3/uL (150-450); RED BLOOD COUNT 4.47 10^6/uL (4.00-5.40); WHITE BLOOD COUNT 6.4 10^3/uL (4.0-10.0)
[2021-11-28 02:11] LABS: CALCIUM LEVEL 8.7 MG/DL (8.5-10.1); CREATININE FOR GFR 1.11 MG/DL (0.55-1.30); GLOMERULAR FILTRATION RATE 53.7 (>51)
== END 2021-11-28 06:00 | disposition left against medical advice (07) ==
LOC: M ED 21:39
DX: Z53.21 Procedure and treatment not carried out due to patient leaving prior to being seen by health care provider (principal)

== ENCOUNTER 2022-08-27 02:19 | Inpatient (IN) | payer OTHER ==
[2022-08-27] VITALS (8 sets, daily range): BP systolic 118–146; BP diastolic 61–82
[2022-08-27] MEDS ORDERED: KETOROLAC 60MG 2ML VIAL IM ONE (03:00)
[2022-08-27] MEDS ORDERED: MORPHINE 4 MG/ML 1ML VIAL IV ONE (05:40)
[2022-08-27] MEDS ORDERED: NS 1,000 ML IV ONE (05:40)
[2022-08-27 06:23] LABS: BASO # 0.1 10^3/uL (0.0-0.2); BASO % 0.7 % (0.0-1.0); EOS # 0.1 10^3/uL (0.0-0.5); EOS % 1.4 % (0.0-3.0); HEMATOCRIT 36.9 % (36.0-47.0); HEMOGLOBIN 12.1 g/dl (12.0-15.5); LYMPH # 1.9 10^3/uL (1.5-5.0); LYMPH % 23.6 % (24.0-44.0); MEAN CORPUSCULAR HEMOGLOBIN 27.6 pg (27.0-33.0); MEAN CORPUSCULAR HGB CONC 32.8 g/dl (32.0-36.5); MEAN CORPUSCULAR VOLUME 84.1 fl (80.0-96.0); MONO # 0.8 10^3/uL (0.0-0.8); MONO % 9.7 % (2.0-8.0); NEUTROPHILS # 5.2 10^3/uL (1.5-8.5); PLATELET COUNT, AUTOMATED 144 10^3/uL (150-450); RED BLOOD COUNT 4.39 10^6/uL (4.00-5.40); WHITE BLOOD COUNT 8.1 10^3/uL (4.0-10.0)
[2022-08-27] MEDS ORDERED: ERGO500029 PO (06:32)
[2022-08-27] MEDS ORDERED: FLUO10CA18 PO (06:39)
[2022-08-27] MEDS ORDERED: HYDR1CAP25 PO (06:39)
[2022-08-27] MEDS ORDERED: FAMO20TA5 PO (06:39)
[2022-08-27] MEDS ORDERED: LISI20TA33 PO (06:39)
[2022-08-27] MEDS ORDERED: ALBU8.5H PO (06:39)
[2022-08-27] MEDS ORDERED: SOLI5TAB PO (06:39)
[2022-08-27] MEDS ORDERED: GABA600T4 PO (06:40)
[2022-08-27] MEDS ORDERED: NITR100C2 PO (06:42)
[2022-08-27] MEDS ORDERED: HOME MED LIST COMPLETE! XX SCH (06:45)
[2022-08-27 06:51] LABS: ALBUMIN 3.1 G/DL (3.2-5.2); BILIRUBIN,TOTAL 1.3 MG/DL (0.3-1.2); CALCIUM LEVEL 8.7 MG/DL (8.5-10.1); CREATININE FOR GFR 1.11 MG/DL (0.55-1.30); GLOMERULAR FILTRATION RATE 53.6 (>51); TOTAL PROTEIN 5.9 G/DL (5.7-8.2)
[2022-08-27] MEDS ORDERED: ISOVUE-370 76% 100ML VIAL As Ordered ONE (07:01)
[2022-08-27 07:07] LABS: RSV AMPLIFICATION NEGATIVE (NEGATIVE)
[2022-08-27] MEDS: MORPHINE 4 MG/ML 1ML VIAL IV PRN ×2 (08:43→12:48)
[2022-08-27] MEDS: LEVEMIR (INSULIN DETEMIR) 1 UNITS/0.01ML SC SCH ×2 (09:00→20:57)
[2022-08-27] MEDS: SOLIFENACIN 5 MG TAB PO SCH (09:00)
[2022-08-27] MEDS: PERCOCET 5MG/325MG TAB PO PRN (09:26)
[2022-08-27] MEDS: NS 1,000 ML IV SCH ×2 (09:46→17:25)
[2022-08-27] MEDS ORDERED: DEXTROSE 50% 50ML SYRINGE IV PRN (11:25)
[2022-08-27] MEDS ORDERED: ALBUTEROL 90 MCG/ACT 8GM HFA INHALER INH PRN (11:25)
[2022-08-27] MEDS ORDERED: GLUCAGON INJ 1MG VIAL SC PRN (11:25)
[2022-08-27] MEDS ORDERED: GLUCOSE 4GM CHEW TABLET PO PRN (11:25)
[2022-08-27] MEDS: INSULIN LISPRO (NovoLOG) PER UNIT SC SCH ×3 (12:00→20:56)
[2022-08-27] MEDS: GABAPENTIN 300 MG CAP PO SCH ×2 (12:52→20:56)
[2022-08-27] MEDS: FAMOTIDINE 20 MG TAB PO SCH ×2 (12:53→20:56)
[2022-08-27] MEDS: CETIRIZINE (ZyrTEC) 10 MG TAB PO SCH (12:53)
[2022-08-27] MEDS: FLUoxetine 10 MG CAP PO SCH (12:53)
[2022-08-27] MEDS ORDERED: fentaNYL 100 MCG/2 ML INJECTION As Ordered ONE (16:03)
[2022-08-27] MEDS ORDERED: MIDAZOLAM INJ 2MG/2ML VIAL As Ordered ONE (16:04)
[2022-08-27] MEDS ORDERED: ONDANSETRON 4MG 2ML VIAL As Ordered ONE (16:06)
[2022-08-27] MEDS ORDERED: propofoL 200 MG/20 ML VIAL As Ordered ONE (16:06)
[2022-08-27] MEDS ORDERED: LIDOCAINE 2% INJ 100 MG/5 ML SYRINGE As Ordered ONE (16:06)
[2022-08-27] MEDS ORDERED: KETOROLAC 60MG 2ML VIAL As Ordered ONE (17:09)
[2022-08-27] MEDS ORDERED: METOCLOPRAMIDE INJ 10MG/2ML VIAL As Ordered ONE (17:09)
[2022-08-27] MEDS ORDERED: ACETAMINOPHEN 1000MG 100ML IV BAG As Ordered ONE (17:15)
[2022-08-27] MEDS ORDERED: ceFAZolin 2 GM/D5W 50 ML IV BAG IV ONE (17:20)
[2022-08-27] MEDS ORDERED: PERCOCET 5MG/325MG TAB PO PRN (18:50)
[2022-08-27] MEDS ORDERED: ONDANSETRON 4MG 2ML VIAL IV PRN (18:50)
[2022-08-27] MEDS ORDERED: LR 1,000 ML IV SCH (18:50)
[2022-08-27] MEDS ORDERED: MEPERIDINE 25 MG/ML 1ML VIAL IV PRN (18:50)
[2022-08-27] MEDS ORDERED: fentaNYL 100 MCG/2 ML INJECTION IV PRN (18:50)
[2022-08-27 21:13] LABS: VENOUS BASE EXCESS 0.1 (-2.0-2.0); VENOUS HCO3 25.2 MEQ/L (23.0-27.0); VENOUS O2 SATURATION 99.3 % (60.0-80.0); VENOUS PARTIAL PRESSURE CO2 42.7 mmHg (38.0-50.0); VENOUS PARTIAL PRESSURE O2 170.6 mmHg (30.0-50.0); VENOUS PH 7.389 UNITS (7.330-7.430); VENOUS STANDARD HCO3 24.6 MEQ/L; VENOUS TOTAL CO2 26.5 MEQ/L (24.0-28.0)
[2022-08-28] VITALS (7 sets, daily range): BP systolic 118–141; BP diastolic 56–72; O2SAT 95
[2022-08-28] MEDS: ceFAZolin SOD 2 GM in IV 1 EA IV SCH ×2 (01:22→08:20)
[2022-08-28] MEDS: NS 1,000 ML IV SCH ×3 (03:50→17:58)
[2022-08-28 06:21] LABS: BASO % 0.4 % (0.0-1.0); HEMATOCRIT 33.4 % (36.0-47.0); HEMOGLOBIN 10.9 g/dl (12.0-15.5); LYMPH # 0.8 10^3/uL (1.5-5.0); LYMPH % 11.3 % (24.0-44.0); MEAN CORPUSCULAR HEMOGLOBIN 27.9 pg (27.0-33.0); MEAN CORPUSCULAR HGB CONC 32.6 g/dl (32.0-36.5); MEAN CORPUSCULAR VOLUME 85.4 fl (80.0-96.0); MONO # 0.4 10^3/uL (0.0-0.8); MONO % 5.5 % (2.0-8.0); NEUTROPHILS # 5.5 10^3/uL (1.5-8.5); NEUTROPHILS % 82.2 % (36.0-66.0); PLATELET COUNT, AUTOMATED 131 10^3/uL (150-450); RED BLOOD COUNT 3.91 10^6/uL (4.00-5.40); WHITE BLOOD COUNT 6.7 10^3/uL (4.0-10.0)
[2022-08-28 06:56] LABS: CALCIUM LEVEL 7.3 MG/DL (8.5-10.1); CREATININE FOR GFR 1.02 MG/DL (0.55-1.30); POTASSIUM SERUM 5.1 MMOL/L (3.5-5.1)
[2022-08-28] MEDS: FLUoxetine 10 MG CAP PO SCH (08:20)
[2022-08-28] MEDS: SOLIFENACIN 5 MG TAB PO SCH (08:20)
[2022-08-28] MEDS: GABAPENTIN 300 MG CAP PO SCH ×2 (08:20→20:34)
[2022-08-28] MEDS: CETIRIZINE (ZyrTEC) 10 MG TAB PO SCH (08:22)
[2022-08-28] MEDS: FAMOTIDINE 20 MG TAB PO SCH ×2 (08:22→20:34)
[2022-08-28] MEDS: LEVEMIR (INSULIN DETEMIR) 1 UNITS/0.01ML SC SCH ×2 (08:23→20:33)
[2022-08-28] MEDS: INSULIN LISPRO (NovoLOG) PER UNIT SC SCH ×4 (08:23→21:00)
[2022-08-28 10:31] LABS: INR 1.03; PROTHROMBIN TIME 13.7 SECONDS (12.5-14.5)
[2022-08-28 10:32] LABS: PARTIAL THROMBOPLASTIN TIME 29.3 SECONDS (24.8-34.2)
[2022-08-28 10:59] LABS: ABG BASE EXCESS 1.6 (-2.0-2.0); ABG HCO3 26.4 MEQ/L (22.0-26.0); ABG O2 SATURATION 95.6 % (95.0-99.0); ABG PARTIAL PRESSURE CO2 42.1 mmHg (35.0-45.0); ABG PARTIAL PRESSURE O2 75.1 mmHg (75.0-100.0); ABG STANDARD HCO3 25.9 MEQ/L (22.0-26.0); ABG TOTAL CO2 27.7 MEQ/L (22.0-29.0); ABG pH (ARTERIAL) 7.415 UNITS (7.350-7.450)
[2022-08-28] MEDS: ACETAMINOPHEN TAB 650MG DOSE (2X325MG) PO PRN (14:26)
[2022-08-28] MEDS: PERCOCET 5MG/325MG TAB PO PRN (16:27)
[2022-08-28] MEDS: RIVAROXABAN 10MG TAB (XARELTO) PO SCH (17:58)
[2022-08-29] MEDS: NS 1,000 ML IV SCH ×2 (02:28→10:36)
[2022-08-29] MEDS: PERCOCET 5MG/325MG TAB PO PRN (05:38)
[2022-08-29 06:00] VITALS: BP 122/58
[2022-08-29] MEDS: MORPHINE 4 MG/ML 1ML VIAL IV PRN (07:04)
[2022-08-29] MEDS: INSULIN LISPRO (NovoLOG) PER UNIT SC SCH ×4 (07:30→21:00)
[2022-08-29] MEDS: LEVEMIR (INSULIN DETEMIR) 1 UNITS/0.01ML SC SCH ×2 (10:09→21:23)
[2022-08-29] MEDS: FLUoxetine 10 MG CAP PO SCH (10:10)
[2022-08-29] MEDS: GABAPENTIN 300 MG CAP PO SCH ×2 (10:10→21:23)
[2022-08-29] MEDS: SOLIFENACIN 5 MG TAB PO SCH (10:10)
[2022-08-29] MEDS: FAMOTIDINE 20 MG TAB PO SCH ×2 (10:10→21:23)
[2022-08-29] MEDS: CETIRIZINE (ZyrTEC) 10 MG TAB PO SCH (10:10)
[2022-08-29] MEDS: ACETAMINOPHEN TAB 650MG DOSE (2X325MG) PO PRN ×2 (10:10→18:16)
[2022-08-29 13:50] LABS: HEMOGLOBIN A1c 8.1 % (4.0-6.0)
[2022-08-29 14:00] VITALS: BP 148/64
[2022-08-29] MEDS: RIVAROXABAN 10MG TAB (XARELTO) PO SCH (18:15)
[2022-08-29 21:24] VITALS: BP 151/65
[2022-08-30 06:16] VITALS: BP 151/67
[2022-08-30 06:33] LABS: BASO # 0.1 10^3/uL (0.0-0.2); BASO % 0.9 % (0.0-1.0); EOS # 0.1 10^3/uL (0.0-0.5); EOS % 1.8 % (0.0-3.0); HEMATOCRIT 34.2 % (36.0-47.0); HEMOGLOBIN 11.3 g/dl (12.0-15.5); LYMPH # 1.5 10^3/uL (1.5-5.0); LYMPH % 22.1 % (24.0-44.0); MEAN CORPUSCULAR HEMOGLOBIN 27.8 pg (27.0-33.0); MEAN CORPUSCULAR VOLUME 84.2 fl (80.0-96.0); MONO # 0.7 10^3/uL (0.0-0.8); MONO % 9.6 % (2.0-8.0); NEUTROPHILS # 4.4 10^3/uL (1.5-8.5); PLATELET COUNT, AUTOMATED 147 10^3/uL (150-450); RED BLOOD COUNT 4.06 10^6/uL (4.00-5.40); WHITE BLOOD COUNT 6.8 10^3/uL (4.0-10.0)
[2022-08-30 06:58] LABS: BLOOD UREA NITROGEN 12 MG/DL (9-23); CARBON DIOXIDE LEVEL 26 MMOL/L (20-31); CHLORIDE LEVEL 106 MMOL/L (98-107); CREATININE FOR GFR 0.72 MG/DL (0.55-1.30); GLOMERULAR FILTRATION RATE > 60.0 (>51); GLUCOSE, FASTING 57 MG/DL (60-100); SODIUM LEVEL 140 MMOL/L (136-145)
[2022-08-30] MEDS: INSULIN LISPRO (NovoLOG) PER UNIT SC SCH ×4 (07:30→20:18)
[2022-08-30 08:00] VITALS: BP 103/54
[2022-08-30] MEDS: FLUoxetine 10 MG CAP PO SCH (08:49)
[2022-08-30] MEDS: FAMOTIDINE 20 MG TAB PO SCH ×2 (08:49→20:18)
[2022-08-30] MEDS: ACETAMINOPHEN TAB 650MG DOSE (2X325MG) PO PRN (08:51)
[2022-08-30] MEDS: GABAPENTIN 300 MG CAP PO SCH ×2 (08:51→20:18)
[2022-08-30] MEDS: SOLIFENACIN 5 MG TAB PO SCH (08:51)
[2022-08-30] MEDS: CETIRIZINE (ZyrTEC) 10 MG TAB PO SCH (08:53)
[2022-08-30] MEDS: LEVEMIR (INSULIN DETEMIR) 1 UNITS/0.01ML SC SCH ×2 (08:54→20:19)
[2022-08-30] MEDS: PERCOCET 5MG/325MG TAB PO PRN (12:00)
[2022-08-30 14:00] VITALS: BP 149/56
[2022-08-30] MEDS: RIVAROXABAN 10MG TAB (XARELTO) PO SCH (18:48)
[2022-08-30 20:10] VITALS: BP 151/70
[2022-08-31] MEDS: PERCOCET 5MG/325MG TAB PO PRN ×3 (03:15→20:52)
[2022-08-31 05:54] VITALS: BP 166/71
[2022-08-31] MEDS: LEVEMIR (INSULIN DETEMIR) 1 UNITS/0.01ML SC SCH ×2 (08:10→20:53)
[2022-08-31] MEDS: INSULIN LISPRO (NovoLOG) PER UNIT SC SCH ×4 (08:10→21:00)
[2022-08-31] MEDS: FLUoxetine 10 MG CAP PO SCH (08:11)
[2022-08-31] MEDS: CETIRIZINE (ZyrTEC) 10 MG TAB PO SCH (08:11)
[2022-08-31] MEDS: FAMOTIDINE 20 MG TAB PO SCH ×2 (08:12→20:51)
[2022-08-31] MEDS: GABAPENTIN 300 MG CAP PO SCH ×2 (08:12→20:51)
[2022-08-31] MEDS: ACETAMINOPHEN TAB 650MG DOSE (2X325MG) PO PRN ×2 (08:12→17:41)
[2022-08-31] MEDS: SOLIFENACIN 5 MG TAB PO SCH (08:12)
[2022-08-31] MEDS: RIVAROXABAN 10MG TAB (XARELTO) PO SCH (17:41)
[2022-09-01] MEDS: PERCOCET 5MG/325MG TAB PO PRN ×3 (04:48→18:20)
[2022-09-01 06:49] VITALS: BP 151/70
[2022-09-01] MEDS: INSULIN LISPRO (NovoLOG) PER UNIT SC SCH ×4 (07:30→19:48)
[2022-09-01] MEDS: FLUoxetine 10 MG CAP PO SCH (09:35)
[2022-09-01] MEDS: GABAPENTIN 300 MG CAP PO SCH ×2 (09:35→19:54)
[2022-09-01] MEDS: LEVEMIR (INSULIN DETEMIR) 1 UNITS/0.01ML SC SCH ×2 (09:35→19:54)
[2022-09-01] MEDS: CETIRIZINE (ZyrTEC) 10 MG TAB PO SCH (09:35)
[2022-09-01] MEDS: SOLIFENACIN 5 MG TAB PO SCH (09:35)
[2022-09-01] MEDS: FAMOTIDINE 20 MG TAB PO SCH ×2 (09:36→19:54)
[2022-09-01] MEDS: RIVAROXABAN 10MG TAB (XARELTO) PO SCH (17:57)
[2022-09-02] MEDS: PERCOCET 5MG/325MG TAB PO PRN ×2 (02:22→08:46)
[2022-09-02 06:00] VITALS: BP 149/67
[2022-09-02] MEDS: INSULIN LISPRO (NovoLOG) PER UNIT SC SCH ×2 (07:10→12:00)
[2022-09-02 08:00] VITALS: BP 149/67
[2022-09-02 08:45] VITALS: BP 149/67
[2022-09-02] MEDS: CETIRIZINE (ZyrTEC) 10 MG TAB PO SCH (08:45)
[2022-09-02] MEDS: FAMOTIDINE 20 MG TAB PO SCH (08:45)
[2022-09-02] MEDS: SOLIFENACIN 5 MG TAB PO SCH (08:45)
[2022-09-02] MEDS: GABAPENTIN 300 MG CAP PO SCH (08:45)
[2022-09-02] MEDS: FLUoxetine 10 MG CAP PO SCH (08:46)
[2022-09-02] MEDS ORDERED: LEVEMIR (INSULIN DETEMIR) 1 UNITS/0.01ML SC SCH (09:00)
[2022-09-02] MEDS ORDERED: PANT40TA29 PO (09:35)
[2022-09-02] MEDS ORDERED: BASA100I SC (09:35)
[2022-09-02] MEDS ORDERED: ASPI-546 PO (09:35)
[2022-09-02] MEDS ORDERED: OXYC1TAB23 PO (09:39)
== END 2022-09-02 12:30 | disposition home health service (06) | DRG 308 ==
LOC: EDBD 02:19 → M ED 02:19 → M ED INP 02:20 → ENRESERV 10:20 → M MS5PR 11:30 → OBSVTOIN 08-29 11:06
PROVIDERS: ADMIT Internal Medicine; ATTEND Internal Medicine
PROC: 0QS634Z Reposition Right Upper Femur with Internal Fixation Device, Percutaneous Approach (ICD-10-PCS; principal; 2022-08-27 13:00)
DX: S72.001A Fracture of unspecified part of neck of right femur, initial encounter for closed fracture (principal); Z68.41 Body mass index [BMI] 40.0-44.9, adult; E11.40 Type 2 diabetes mellitus with diabetic neuropathy, unspecified; E66.01 Morbid (severe) obesity due to excess calories; F32.A Depression, unspecified; F41.9 Anxiety disorder, unspecified; G47.33 Obstructive sleep apnea (adult) (pediatric); I10 Essential (primary) hypertension; K21.9 Gastro-esophageal reflux disease without esophagitis; K57.90 Diverticulosis of intestine, part unspecified, without perforation or abscess without bleeding; M19.90 Unspecified osteoarthritis, unspecified site; M35.3 Polymyalgia rheumatica; M79.7 Fibromyalgia; J44.9 Chronic obstructive pulmonary disease, unspecified; Z79.899 Other long term (current) drug therapy; Z79.4 Long term (current) use of insulin; E78.5 Hyperlipidemia, unspecified; Z87.891 Personal history of nicotine dependence; Z79.82 Long term (current) use of aspirin; Z91.199 Patient's noncompliance with other medical treatment and regimen due to unspecified reason

== ENCOUNTER → 2022-09-19 | Outpatient (CLI) | payer OTHER ==
[~2022-09-19] MED LIST changes: +ALBU8.5H PO; +ERGO500029 PO; +FAMO20TA5 PO; +FLUO10CA18 PO; +GABA600T4 PO; +HYDR1CAP25 PO; +LISI20TA33 PO; +NITR100C2 PO; +PANT40TA29 PO; +SOLI5TAB PO
== END ==
LOC: M SOG 09:19
PROVIDERS: ATTEND Orthopaedic Surgery
DX: Z47.89 Encounter for other orthopedic aftercare (principal)

== ENCOUNTER 2022-09-22 15:42 | Emergency (ER) | payer OTHER ==
[~2022-09-22] VITALS: Ht 167.6 cm; Wt 111.4 kg
[2022-09-22] MEDS ORDERED: MORPHINE 4 MG/ML 1ML VIAL IV ONE ×2 (16:10→19:30)
[2022-09-22 17:52] LABS: BLOOD UREA NITROGEN 15 MG/DL (9-23); CALCIUM LEVEL 8.4 MG/DL (8.5-10.1); CARBON DIOXIDE LEVEL 32 MMOL/L (20-31); CHLORIDE LEVEL 105 MMOL/L (98-107); CREATININE FOR GFR 0.74 MG/DL (0.55-1.30); GLOMERULAR FILTRATION RATE > 60.0 (>51); GLUCOSE, FASTING 136 MG/DL (60-100); SODIUM LEVEL 142 MMOL/L (136-145)
[2022-09-22 17:59] LABS: BASO # 0.1 10^3/uL (0.0-0.2); BASO % 1.1 % (0.0-1.0); EOS # 0.1 10^3/uL (0.0-0.5); EOS % 2.5 % (0.0-3.0); HEMATOCRIT 36.8 % (36.0-47.0); HEMOGLOBIN 11.9 g/dl (12.0-15.5); LYMPH # 1.6 10^3/uL (1.5-5.0); LYMPH % 29.6 % (24.0-44.0); MEAN CORPUSCULAR HEMOGLOBIN 27.4 pg (27.0-33.0); MEAN CORPUSCULAR HGB CONC 32.3 g/dl (32.0-36.5); MEAN CORPUSCULAR VOLUME 84.6 fl (80.0-96.0); MONO # 0.5 10^3/uL (0.0-0.8); MONO % 8.1 % (2.0-8.0); NEUTROPHILS # 3.2 10^3/uL (1.5-8.5); NEUTROPHILS % 58.3 % (36.0-66.0); PLATELET COUNT, AUTOMATED 201 10^3/uL (150-450); RED BLOOD COUNT 4.35 10^6/uL (4.00-5.40); WHITE BLOOD COUNT 5.5 10^3/uL (4.0-10.0)
[2022-09-22 19:58] VITALS: BP 167/75
== END 2022-09-22 20:57 | disposition home or self-care (01) ==
LOC: M ED 15:42 → EDBD 15:42 → M ED 20:57
DX: M25.551 Pain in right hip (principal); E11.9 Type 2 diabetes mellitus without complications; I10 Essential (primary) hypertension; E78.5 Hyperlipidemia, unspecified; F41.9 Anxiety disorder, unspecified; F32.A Depression, unspecified; G47.33 Obstructive sleep apnea (adult) (pediatric); Z87.891 Personal history of nicotine dependence; Z79.52 Long term (current) use of systemic steroids; Z79.82 Long term (current) use of aspirin; Z79.4 Long term (current) use of insulin; Z79.811 Long term (current) use of aromatase inhibitors; Z79.899 Other long term (current) drug therapy

== ENCOUNTER 2022-09-26 22:26 | Inpatient (IN) | payer OTHER ==
[~2022-09-26] VITALS: Ht 167.6 cm; Wt 109.0 kg
[2022-09-26] MEDS ORDERED: IBUP1TAB6 PO (22:46)
[2022-09-27] MEDS ORDERED: ONDANSETRON 4MG 2ML VIAL IV ONE (03:15)
[2022-09-27] MEDS ORDERED: MORPHINE 4 MG/ML 1ML VIAL IV PRN (03:15)
[2022-09-27 03:34] LABS: BASO # 0.1 10^3/uL (0.0-0.2); BASO % 1.2 % (0.0-1.0); EOS # 0.2 10^3/uL (0.0-0.5); EOS % 2.7 % (0.0-3.0); HEMATOCRIT 36.8 % (36.0-47.0); HEMOGLOBIN 12.1 g/dl (12.0-15.5); LYMPH % 33.7 % (24.0-44.0); MEAN CORPUSCULAR HEMOGLOBIN 27.4 pg (27.0-33.0); MEAN CORPUSCULAR HGB CONC 32.9 g/dl (32.0-36.5); MEAN CORPUSCULAR VOLUME 83.3 fl (80.0-96.0); MONO # 0.6 10^3/uL (0.0-0.8); MONO % 9.4 % (2.0-8.0); NEUTROPHILS # 3.1 10^3/uL (1.5-8.5); NEUTROPHILS % 52.5 % (36.0-66.0); PLATELET COUNT, AUTOMATED 170 10^3/uL (150-450); RED BLOOD COUNT 4.42 10^6/uL (4.00-5.40); WHITE BLOOD COUNT 5.8 10^3/uL (4.0-10.0)
[2022-09-27 03:51] LABS: INR 0.91; PROTHROMBIN TIME 12.5 SECONDS (12.5-14.5)
[2022-09-27 03:52] LABS: PARTIAL THROMBOPLASTIN TIME 30.9 SECONDS (24.8-34.2)
[2022-09-27 04:00] LABS: BLOOD UREA NITROGEN 17 MG/DL (9-23); CALCIUM LEVEL 8.7 MG/DL (8.5-10.1); CARBON DIOXIDE LEVEL 30 MMOL/L (20-31); CHLORIDE LEVEL 109 MMOL/L (98-107); CREATININE FOR GFR 0.79 MG/DL (0.55-1.30); GLOMERULAR FILTRATION RATE > 60.0 (>51); GLUCOSE, FASTING 78 MG/DL (60-100); POTASSIUM SERUM 3.3 MMOL/L (3.5-5.1); SODIUM LEVEL 143 MMOL/L (136-145)
[2022-09-27] MEDS ORDERED: POTASSIUM CHLORIDE 10MEQ SR TABLET PO ONE (07:55)
[2022-09-27] MEDS ORDERED: DULO1CAP5 PO (07:57)
[2022-09-27] MEDS ORDERED: ASPI-531 PO (07:57)
[2022-09-27] MEDS ORDERED: CETI-24 PO (07:57)
[2022-09-27] MEDS ORDERED: NITR100C2 PO (07:58)
[2022-09-27] MEDS ORDERED: PANT40TA29 PO (08:01)
[2022-09-27] MEDS ORDERED: BASA100I SC (08:01)
[2022-09-27] MEDS ORDERED: HOME MED LIST COMPLETE! XX SCH (08:05)
[2022-09-27 09:00] VITALS: BP 162/73
[2022-09-27] MEDS ORDERED: ACETAMINOPHEN TAB 650MG DOSE (2X325MG) PO PRN (09:15)
[2022-09-27] MEDS ORDERED: DEXTROSE 50% 50ML SYRINGE IV PRN (09:15)
[2022-09-27] MEDS ORDERED: GLUCAGON INJ 1MG VIAL SC PRN (09:15)
[2022-09-27] MEDS ORDERED: traMADol 50 MG TAB PO PRN (09:30)
[2022-09-27] MEDS: CETIRIZINE (ZyrTEC) 10 MG TAB PO SCH (10:20)
[2022-09-27] MEDS: SOLIFENACIN 5 MG TAB PO SCH (10:21)
[2022-09-27] MEDS: GABAPENTIN 300 MG CAP PO SCH ×2 (10:21→21:10)
[2022-09-27] MEDS: FAMOTIDINE 20 MG TAB PO SCH ×2 (10:21→21:11)
[2022-09-27] MEDS: ASPIRIN 81MG ENTERIC TABLET PO SCH ×2 (10:21→21:11)
[2022-09-27] MEDS: PANTOPRAZOLE 40MG TAB (PROTONIX) PO SCH (10:21)
[2022-09-27] MEDS: DULoxetine 30MG CAPSULE (CYMBALTA) PO SCH (10:21)
[2022-09-27] MEDS: PERCOCET 5MG/325MG TAB PO PRN (10:22)
[2022-09-27 13:29] LABS: C REACTIVE PROTEIN QUANTITATIV < 0.40 MG/DL (<1.0)
[2022-09-27] MEDS: MORPHINE 2 MG/ML 1ML VIAL IV PRN ×2 (13:55→21:17)
[2022-09-27] MEDS: INSULIN LISPRO (NovoLOG) PER UNIT SC SCH ×3 (13:56→21:00)
[2022-09-27] MEDS: HEPARIN SOD (PORCINE) 5000UNITS/ML 1ML VIAL/SYRINGE SC SCH ×2 (13:56→22:57)
[2022-09-27 14:00] VITALS: BP 141/50
[2022-09-27 20:50] VITALS: BP 142/51
[2022-09-28] MEDS: HEPARIN SOD (PORCINE) 5000UNITS/ML 1ML VIAL/SYRINGE SC SCH ×3 (05:50→20:57)
[2022-09-28 06:20] LABS: BASO # 0.1 10^3/uL (0.0-0.2); EOS # 0.2 10^3/uL (0.0-0.5); EOS % 3.2 % (0.0-3.0); HEMATOCRIT 34.5 % (36.0-47.0); HEMOGLOBIN 11.4 g/dl (12.0-15.5); LYMPH # 1.6 10^3/uL (1.5-5.0); LYMPH % 32.9 % (24.0-44.0); MEAN CORPUSCULAR HEMOGLOBIN 27.9 pg (27.0-33.0); MEAN CORPUSCULAR VOLUME 84.4 fl (80.0-96.0); MONO # 0.5 10^3/uL (0.0-0.8); MONO % 10.5 % (2.0-8.0); NEUTROPHILS # 2.6 10^3/uL (1.5-8.5); PLATELET COUNT, AUTOMATED 143 10^3/uL (150-450); RED BLOOD COUNT 4.09 10^6/uL (4.00-5.40)
[2022-09-28 06:21] VITALS: BP 142/52
[2022-09-28] MEDS: MORPHINE 2 MG/ML 1ML VIAL IV PRN ×2 (06:28→12:50)
[2022-09-28 06:59] LABS: BLOOD UREA NITROGEN 15 MG/DL (9-23); CALCIUM LEVEL 8.3 MG/DL (8.5-10.1); CARBON DIOXIDE LEVEL 30 MMOL/L (20-31); CHLORIDE LEVEL 107 MMOL/L (98-107); CREATININE FOR GFR 0.85 MG/DL (0.55-1.30); GLOMERULAR FILTRATION RATE > 60.0 (>51); GLUCOSE, FASTING 113 MG/DL (60-100); POTASSIUM SERUM 4.3 MMOL/L (3.5-5.1); SODIUM LEVEL 144 MMOL/L (136-145)
[2022-09-28] MEDS: INSULIN LISPRO (NovoLOG) PER UNIT SC SCH ×4 (08:01→21:00)
[2022-09-28] MEDS: SOLIFENACIN 5 MG TAB PO SCH (09:58)
[2022-09-28] MEDS: GABAPENTIN 300 MG CAP PO SCH ×2 (09:58→20:56)
[2022-09-28] MEDS: FAMOTIDINE 20 MG TAB PO SCH ×2 (09:59→20:57)
[2022-09-28] MEDS: CETIRIZINE (ZyrTEC) 10 MG TAB PO SCH (09:59)
[2022-09-28] MEDS: ASPIRIN 81MG ENTERIC TABLET PO SCH ×2 (09:59→20:56)
[2022-09-28] MEDS: PANTOPRAZOLE 40MG TAB (PROTONIX) PO SCH (09:59)
[2022-09-28] MEDS: DULoxetine 30MG CAPSULE (CYMBALTA) PO SCH (09:59)
[2022-09-28 14:00] VITALS: BP 149/70
[2022-09-28] MEDS: PERCOCET 5MG/325MG TAB PO PRN ×2 (17:48→22:13)
[2022-09-28 20:33] VITALS: BP 136/51
[2022-09-29] MEDS: HEPARIN SOD (PORCINE) 5000UNITS/ML 1ML VIAL/SYRINGE SC SCH ×3 (06:00→21:03)
[2022-09-29 06:18] VITALS: BP 126/53
[2022-09-29 06:22] LABS: BASO # 0.1 10^3/uL (0.0-0.2); BASO % 1.5 % (0.0-1.0); EOS # 0.1 10^3/uL (0.0-0.5); HEMATOCRIT 38.9 % (36.0-47.0); HEMOGLOBIN 12.5 g/dl (12.0-15.5); LYMPH # 1.5 10^3/uL (1.5-5.0); LYMPH % 31.1 % (24.0-44.0); MEAN CORPUSCULAR HEMOGLOBIN 27.4 pg (27.0-33.0); MEAN CORPUSCULAR HGB CONC 32.1 g/dl (32.0-36.5); MEAN CORPUSCULAR VOLUME 85.3 fl (80.0-96.0); MONO # 0.5 10^3/uL (0.0-0.8); MONO % 9.9 % (2.0-8.0); NEUTROPHILS # 2.5 10^3/uL (1.5-8.5); NEUTROPHILS % 54.1 % (36.0-66.0); PLATELET COUNT, AUTOMATED 164 10^3/uL (150-450); RED BLOOD COUNT 4.56 10^6/uL (4.00-5.40); WHITE BLOOD COUNT 4.7 10^3/uL (4.0-10.0)
[2022-09-29 06:50] LABS: BLOOD UREA NITROGEN 16 MG/DL (9-23); CALCIUM LEVEL 8.5 MG/DL (8.5-10.1); CARBON DIOXIDE LEVEL 31 MMOL/L (20-31); CHLORIDE LEVEL 104 MMOL/L (98-107); CREATININE FOR GFR 0.91 MG/DL (0.55-1.30); GLOMERULAR FILTRATION RATE > 60.0 (>51); GLUCOSE, FASTING 168 MG/DL (60-100); POTASSIUM SERUM 4.2 MMOL/L (3.5-5.1); SODIUM LEVEL 141 MMOL/L (136-145)
[2022-09-29] MEDS: PANTOPRAZOLE 40MG TAB (PROTONIX) PO SCH (09:11)
[2022-09-29] MEDS: FAMOTIDINE 20 MG TAB PO SCH ×2 (09:11→21:06)
[2022-09-29] MEDS: CETIRIZINE (ZyrTEC) 10 MG TAB PO SCH (09:11)
[2022-09-29] MEDS: SOLIFENACIN 5 MG TAB PO SCH (09:11)
[2022-09-29] MEDS: GABAPENTIN 300 MG CAP PO SCH ×2 (09:16→21:06)
[2022-09-29] MEDS: DULoxetine 30MG CAPSULE (CYMBALTA) PO SCH (09:16)
[2022-09-29] MEDS: ASPIRIN 81MG ENTERIC TABLET PO SCH ×2 (09:16→21:00)
[2022-09-29] MEDS: INSULIN LISPRO (NovoLOG) PER UNIT SC SCH ×4 (09:17→21:00)
[2022-09-29] MEDS: PERCOCET 5MG/325MG TAB PO PRN ×2 (09:29→17:39)
[2022-09-29] MEDS ORDERED: FLUTICASONE PROP 0.05% NASAL SPRAY 16 GM (FLONASE) NARES PRN (12:30)
[2022-09-29 14:00] VITALS: BP 139/58
[2022-09-29 19:50] VITALS: BP 151/60
[2022-09-30] MEDS: PERCOCET 5MG/325MG TAB PO PRN ×2 (03:06→07:55)
[2022-09-30 06:30] LABS: BASO # 0.1 10^3/uL (0.0-0.2); BASO % 1.2 % (0.0-1.0); EOS # 0.2 10^3/uL (0.0-0.5); EOS % 3.1 % (0.0-3.0); HEMATOCRIT 35.8 % (36.0-47.0); HEMOGLOBIN 11.7 g/dl (12.0-15.5); LYMPH # 1.5 10^3/uL (1.5-5.0); LYMPH % 30.4 % (24.0-44.0); MEAN CORPUSCULAR HEMOGLOBIN 27.4 pg (27.0-33.0); MEAN CORPUSCULAR HGB CONC 32.7 g/dl (32.0-36.5); MEAN CORPUSCULAR VOLUME 83.8 fl (80.0-96.0); MONO # 0.5 10^3/uL (0.0-0.8); MONO % 9.7 % (2.0-8.0); NEUTROPHILS # 2.7 10^3/uL (1.5-8.5); PLATELET COUNT, AUTOMATED 153 10^3/uL (150-450); RED BLOOD COUNT 4.27 10^6/uL (4.00-5.40); WHITE BLOOD COUNT 4.8 10^3/uL (4.0-10.0)
[2022-09-30 06:33] VITALS: BP 142/64
[2022-09-30 06:47] LABS: BLOOD UREA NITROGEN 13 MG/DL (9-23); CARBON DIOXIDE LEVEL 30 MMOL/L (20-31); CHLORIDE LEVEL 105 MMOL/L (98-107); CREATININE FOR GFR 0.83 MG/DL (0.55-1.30); GLOMERULAR FILTRATION RATE > 60.0 (>51); GLUCOSE, FASTING 207 MG/DL (60-100); POTASSIUM SERUM 4.1 MMOL/L (3.5-5.1); SODIUM LEVEL 140 MMOL/L (136-145)
[2022-09-30] MEDS ORDERED: propofoL 200 MG/20 ML VIAL As Ordered ONE ×2 (07:07→14:45)
[2022-09-30] MEDS ORDERED: LIDOCAINE 2% 100MG/5ML SDV (FOR ANES.) As Ordered ONE ×2 (07:07→14:45)
[2022-09-30] MEDS ORDERED: KETOROLAC 60MG 2ML VIAL As Ordered ONE ×2 (07:07→14:45)
[2022-09-30] MEDS ORDERED: ONDANSETRON 4MG 2ML VIAL As Ordered ONE ×2 (07:07→14:45)
[2022-09-30] MEDS ORDERED: MIDAZOLAM INJ 2MG/2ML VIAL As Ordered ONE ×2 (07:10→14:45)
[2022-09-30] MEDS ORDERED: fentaNYL 100 MCG/2 ML INJECTION As Ordered ONE (07:10)
[2022-09-30 07:30] VITALS: BP 145/65
[2022-09-30] MEDS: INSULIN LISPRO (NovoLOG) PER UNIT SC SCH ×4 (07:30→21:05)
[2022-09-30] MEDS: SOLIFENACIN 5 MG TAB PO SCH (08:49)
[2022-09-30] MEDS: DULoxetine 30MG CAPSULE (CYMBALTA) PO SCH (08:49)
[2022-09-30] MEDS: FAMOTIDINE 20 MG TAB PO SCH ×2 (08:50→21:03)
[2022-09-30] MEDS: GABAPENTIN 300 MG CAP PO SCH ×2 (08:50→21:04)
[2022-09-30] MEDS: CETIRIZINE (ZyrTEC) 10 MG TAB PO SCH (08:51)
[2022-09-30] MEDS: PANTOPRAZOLE 40MG TAB (PROTONIX) PO SCH (08:52)
[2022-09-30] MEDS: ASPIRIN 81MG ENTERIC TABLET PO SCH (08:53)
[2022-09-30] MEDS ORDERED: BUPIVACAINE/EPIN 0.25% 30ML VIAL As Ordered ONE (13:17)
[2022-09-30] MEDS ORDERED: TRANEXAMIC ACID 100 MG/ML 10ML VIAL As Ordered ONE (13:17)
[2022-09-30] MEDS ORDERED: TRANEXAMIC ACID INJection 1,000 MG in D5W 100 ML IV ONE (13:45)
[2022-09-30] MEDS ORDERED: ceFAZolin SOD 2 GM in IV 1 EA IV ONE (13:45)
[2022-09-30] MEDS ORDERED: ceFAZolin 2 GM/D5W 50 ML IV BAG As Ordered ONE ×2 (13:50→17:02)
[2022-09-30] MEDS ORDERED: BUPIVACAINE HCL 0.5% 30ML VIAL As Ordered ONE (13:50)
[2022-09-30] MEDS ORDERED: BUPIVACAINE LIPOSOME/PF 1.3% 20ML VIAL (13.3MG/ML)(EXPAREL) As Ordered ONE (13:51)
[2022-09-30] MEDS ORDERED: METOCLOPRAMIDE INJ 10MG/2ML VIAL As Ordered ONE (14:45)
[2022-09-30] MEDS ORDERED: ePHEDrine SULFATE 25 MG/5 ML(5MG/ML) SYRINGE As Ordered ONE ×2 (14:45→16:11)
[2022-09-30] MEDS ORDERED: ACETAMINOPHEN 1000MG 100ML IV BAG As Ordered ONE (14:45)
[2022-09-30] MEDS ORDERED: SUGAMMADEX SODIUM 500 MG/5 ML VIAL (BRIDION) As Ordered ONE (14:45)
[2022-09-30] MEDS ORDERED: fentaNYL 250 MCG/5 ML INJECTION As Ordered ONE (14:45)
[2022-09-30] MEDS ORDERED: ROCURONIUM BROMIDE 50MG/5ML VIAL As Ordered ONE ×3 (14:45→17:07)
[2022-09-30] MEDS ORDERED: VANCOMYCIN 500MG/10ML VIAL As Ordered ONE (14:46)
[2022-09-30] MEDS ORDERED: VANCOMYCIN 1000MG/20ML VIAL As Ordered ONE (14:47)
[2022-09-30] MEDS ORDERED: HYDROmorphone HCL 2MG/ML 1ML VIAL As Ordered ONE (15:33)
[2022-09-30] MEDS ORDERED: DESFLURANE 240 ML INHALANT As Ordered ONE (16:19)
[2022-09-30] MEDS ORDERED: PHENYLephrine 500MCG 5ML (100MCG/ML) SYRINGE As Ordered ONE (17:08)
[2022-09-30] MEDS ORDERED: ONDANSETRON 4MG 2ML VIAL IV PRN (18:05)
[2022-09-30] MEDS ORDERED: MORPHINE 2 MG/ML 1ML VIAL IV PRN (18:05)
[2022-09-30] MEDS ORDERED: LR 1,000 ML IV SCH (18:20)
[2022-09-30] MEDS ORDERED: SENNA 8.6 MG TAB (SENOKOT) PO PRN (18:20)
[2022-09-30] MEDS: fentaNYL 100 MCG/2 ML INJECTION IV PRN ×4 (19:01→19:27)
[2022-09-30] MEDS: oxyCODONE 5MG TAB PO PRN ×2 (19:02→19:51)
[2022-09-30] MEDS ORDERED: INSULIN LISPRO (NovoLOG) PER UNIT SC PRN (19:30)
[2022-09-30] MEDS ORDERED: HYDROMORPHONE HCL 0.5 MG/ 0.5 ML SYRINGE IV PRN (19:50)
[2022-09-30 20:39] VITALS: BP 116/42
[2022-09-30] MEDS ORDERED: ASPIRIN 81MG ENTERIC TABLET PO SCH (21:00)
[2022-09-30] MEDS: DOCUSATE SODIUM 100MG CAPSULE PO SCH (21:03)
[2022-09-30 21:10] VITALS: BP 110/44
[2022-09-30 22:14] VITALS: BP 112/68
[2022-09-30 23:34] VITALS: BP 113/50
[2022-09-30] MEDS: ceFAZolin SOD 2 GM in IV 1 EA IV SCH (23:39)
[2022-10-01] VITALS (7 sets, daily range): BP systolic 106–130; BP diastolic 39–61
[2022-10-01] MEDS: ceFAZolin SOD 2 GM in IV 1 EA IV SCH (06:20)
[2022-10-01 06:55] LABS: BASO % 0.2 % (0.0-1.0); HEMATOCRIT 30.9 % (36.0-47.0); LYMPH % 8.4 % (24.0-44.0); MEAN CORPUSCULAR HEMOGLOBIN 27.5 pg (27.0-33.0); MEAN CORPUSCULAR HGB CONC 32.4 g/dl (32.0-36.5); MEAN CORPUSCULAR VOLUME 84.9 fl (80.0-96.0); MONO # 1.1 10^3/uL (0.0-0.8); NEUTROPHILS # 10.1 10^3/uL (1.5-8.5); NEUTROPHILS % 81.4 % (36.0-66.0); PLATELET COUNT, AUTOMATED 198 10^3/uL (150-450); RED BLOOD COUNT 3.64 10^6/uL (4.00-5.40); WHITE BLOOD COUNT 12.4 10^3/uL (4.0-10.0)
[2022-10-01 07:08] LABS: INR 1.02; PROTHROMBIN TIME 13.6 SECONDS (12.5-14.5)
[2022-10-01 07:30] LABS: ALBUMIN 2.8 G/DL (3.2-5.2); BILIRUBIN,TOTAL 0.7 MG/DL (0.3-1.2); CALCIUM LEVEL 8.1 MG/DL (8.5-10.1); CREATININE FOR GFR 1.55 MG/DL (0.55-1.30); GLOMERULAR FILTRATION RATE 36.4 (>51); PHOSPHORUS LEVEL 6.5 MG/DL (2.5-4.9); POTASSIUM SERUM 4.2 MMOL/L (3.5-5.1); TOTAL PROTEIN 5.2 G/DL (5.7-8.2)
[2022-10-01] MEDS: INSULIN LISPRO (NovoLOG) PER UNIT SC SCH ×4 (07:30→21:12)
[2022-10-01] MEDS: ASCORBIC ACID 500 MG TAB PO SCH (08:18)
[2022-10-01] MEDS: DULoxetine 30MG CAPSULE (CYMBALTA) PO SCH (08:18)
[2022-10-01] MEDS: RIVAROXABAN 10MG TAB (XARELTO) PO SCH (08:18)
[2022-10-01] MEDS: DOCUSATE SODIUM 100MG CAPSULE PO SCH ×2 (08:19→21:11)
[2022-10-01] MEDS: CETIRIZINE (ZyrTEC) 10 MG TAB PO SCH (08:19)
[2022-10-01] MEDS: SOLIFENACIN 5 MG TAB PO SCH (08:19)
[2022-10-01] MEDS: PANTOPRAZOLE 40MG TAB (PROTONIX) PO SCH (08:19)
[2022-10-01] MEDS: GABAPENTIN 300 MG CAP PO SCH ×2 (08:19→21:11)
[2022-10-01] MEDS: FAMOTIDINE 20 MG TAB PO SCH ×2 (08:19→21:11)
[2022-10-01] MEDS: FERROUS SULFATE 325MG TAB PO SCH (08:19)
[2022-10-01] MEDS: ONDANSETRON 4MG 2ML VIAL IV PRN (08:21)
[2022-10-01] MEDS: MORPHINE 2 MG/ML 1ML VIAL IV PRN (08:22)
[2022-10-01] MEDS: PERCOCET 5MG/325MG TAB PO PRN ×3 (12:19→21:15)
[2022-10-01] MEDS ORDERED: LACTATED RINGER'S 1000 ML IV ONE (12:40)
[2022-10-01] MEDS: LEVEMIR (INSULIN DETEMIR) 1 UNITS/0.01ML SC SCH (21:12)
[2022-10-02] MEDS: PERCOCET 5MG/325MG TAB PO PRN ×3 (03:16→21:11)
[2022-10-02 06:34] VITALS: BP 112/81
[2022-10-02] MEDS: INSULIN LISPRO (NovoLOG) PER UNIT SC SCH ×4 (07:30→21:00)
[2022-10-02 07:50] LABS: BASO # 0.1 10^3/uL (0.0-0.2); BASO % 0.5 % (0.0-1.0); EOS # 0.1 10^3/uL (0.0-0.5); EOS % 0.6 % (0.0-3.0); HEMOGLOBIN 8.5 g/dl (12.0-15.5); LYMPH # 1.4 10^3/uL (1.5-5.0); LYMPH % 13.4 % (24.0-44.0); MEAN CORPUSCULAR HEMOGLOBIN 27.6 pg (27.0-33.0); MEAN CORPUSCULAR HGB CONC 32.7 g/dl (32.0-36.5); MEAN CORPUSCULAR VOLUME 84.4 fl (80.0-96.0); MONO # 1.1 10^3/uL (0.0-0.8); MONO % 10.9 % (2.0-8.0); NEUTROPHILS # 7.6 10^3/uL (1.5-8.5); NEUTROPHILS % 74.1 % (36.0-66.0); PLATELET COUNT, AUTOMATED 163 10^3/uL (150-450); RED BLOOD COUNT 3.08 10^6/uL (4.00-5.40); WHITE BLOOD COUNT 10.2 10^3/uL (4.0-10.0)
[2022-10-02 08:09] LABS: INR 1.18; PROTHROMBIN TIME 15.3 SECONDS (12.5-14.5)
[2022-10-02 08:16] LABS: ALBUMIN 2.5 G/DL (3.2-5.2); ALKALINE PHOSPHATASE 78 U/L (46-116); ALT/SGPT < 9 U/L (7.0-40); AST/SGOT 30 U/L (<34); BILIRUBIN,TOTAL 1.3 MG/DL (0.3-1.2); BLOOD UREA NITROGEN 38 MG/DL (9-23); CALCIUM LEVEL 8.1 MG/DL (8.5-10.1); CARBON DIOXIDE LEVEL 27 MMOL/L (20-31); CHLORIDE LEVEL 104 MMOL/L (98-107); CREATININE FOR GFR 1.59 MG/DL (0.55-1.30); GLOMERULAR FILTRATION RATE 35.4 (>51); GLUCOSE, FASTING 200 MG/DL (60-100); PHOSPHORUS LEVEL 3.9 MG/DL (2.5-4.9); POTASSIUM SERUM 3.6 MMOL/L (3.5-5.1); SODIUM LEVEL 139 MMOL/L (136-145); TOTAL PROTEIN 4.9 G/DL (5.7-8.2)
[2022-10-02] MEDS: DOCUSATE SODIUM 100MG CAPSULE PO SCH ×2 (09:00→21:10)
[2022-10-02] MEDS: DULoxetine 30MG CAPSULE (CYMBALTA) PO SCH (11:13)
[2022-10-02] MEDS: FERROUS SULFATE 325MG TAB PO SCH (11:13)
[2022-10-02] MEDS: PANTOPRAZOLE 40MG TAB (PROTONIX) PO SCH (11:13)
[2022-10-02] MEDS: ASCORBIC ACID 500 MG TAB PO SCH (11:13)
[2022-10-02] MEDS: CETIRIZINE (ZyrTEC) 10 MG TAB PO SCH (11:13)
[2022-10-02] MEDS: FAMOTIDINE 20 MG TAB PO SCH ×2 (11:13→21:10)
[2022-10-02] MEDS: GABAPENTIN 300 MG CAP PO SCH ×2 (11:14→21:09)
[2022-10-02] MEDS: RIVAROXABAN 10MG TAB (XARELTO) PO SCH (11:14)
[2022-10-02] MEDS: LEVEMIR (INSULIN DETEMIR) 1 UNITS/0.01ML SC SCH ×2 (11:15→21:00)
[2022-10-02] MEDS: LR 1,000 ML IV SCH ×2 (12:51→22:29)
[2022-10-02 14:00] VITALS: BP 135/62
[2022-10-02 22:00] VITALS: BP 149/64
[2022-10-03] MEDS ORDERED: MORPHINE 2 MG/ML 1ML VIAL IV PRN (05:30)
[2022-10-03] MEDS: PERCOCET 5MG/325MG TAB PO PRN (05:46)
[2022-10-03] MEDS ORDERED: carisoprodoL 350 MG TAB PO PRN (05:55)
[2022-10-03 06:13] LABS: BASO # 0.1 10^3/uL (0.0-0.2); BASO % 0.7 % (0.0-1.0); EOS # 0.1 10^3/uL (0.0-0.5); EOS % 1.8 % (0.0-3.0); HEMATOCRIT 24.9 % (36.0-47.0); HEMOGLOBIN 8.4 g/dl (12.0-15.5); LYMPH % 13.5 % (24.0-44.0); MEAN CORPUSCULAR HEMOGLOBIN 28.4 pg (27.0-33.0); MEAN CORPUSCULAR HGB CONC 33.7 g/dl (32.0-36.5); MEAN CORPUSCULAR VOLUME 84.1 fl (80.0-96.0); MONO # 0.8 10^3/uL (0.0-0.8); MONO % 10.2 % (2.0-8.0); NEUTROPHILS # 5.6 10^3/uL (1.5-8.5); NEUTROPHILS % 73.4 % (36.0-66.0); PLATELET COUNT, AUTOMATED 142 10^3/uL (150-450); RED BLOOD COUNT 2.96 10^6/uL (4.00-5.40); WHITE BLOOD COUNT 7.6 10^3/uL (4.0-10.0)
[2022-10-03 06:30] LABS: INR 1.18; PROTHROMBIN TIME 15.3 SECONDS (12.5-14.5)
[2022-10-03 06:32] VITALS: BP 120/62
[2022-10-03 06:34] LABS: ALBUMIN 2.3 G/DL (3.2-5.2); ALKALINE PHOSPHATASE 79 U/L (46-116); ALT/SGPT 12 U/L (7.0-40); AST/SGOT 29 U/L (<34); BILIRUBIN,TOTAL 1.6 MG/DL (0.3-1.2); BLOOD UREA NITROGEN 27 MG/DL (9-23); CALCIUM LEVEL 8.2 MG/DL (8.5-10.1); CARBON DIOXIDE LEVEL 26 MMOL/L (20-31); CHLORIDE LEVEL 108 MMOL/L (98-107); CREATININE FOR GFR 0.83 MG/DL (0.55-1.30); GLOMERULAR FILTRATION RATE > 60.0 (>51); GLUCOSE, FASTING 183 MG/DL (60-100); PHOSPHORUS LEVEL 2.1 MG/DL (2.5-4.9); POTASSIUM SERUM 3.7 MMOL/L (3.5-5.1); SODIUM LEVEL 139 MMOL/L (136-145); TOTAL PROTEIN 4.9 G/DL (5.7-8.2)
[2022-10-03] MEDS: INSULIN LISPRO (NovoLOG) PER UNIT SC SCH ×4 (07:30→20:36)
[2022-10-03] MEDS: CETIRIZINE (ZyrTEC) 10 MG TAB PO SCH (08:27)
[2022-10-03] MEDS: ASCORBIC ACID 500 MG TAB PO SCH (08:27)
[2022-10-03] MEDS: FERROUS SULFATE 325MG TAB PO SCH (08:27)
[2022-10-03] MEDS: FAMOTIDINE 20 MG TAB PO SCH ×2 (08:27→20:34)
[2022-10-03] MEDS: DULoxetine 30MG CAPSULE (CYMBALTA) PO SCH (08:27)
[2022-10-03] MEDS: LEVEMIR (INSULIN DETEMIR) 1 UNITS/0.01ML SC SCH ×2 (08:27→20:36)
[2022-10-03] MEDS: GABAPENTIN 300 MG CAP PO SCH ×2 (08:27→20:34)
[2022-10-03] MEDS: PANTOPRAZOLE 40MG TAB (PROTONIX) PO SCH (08:27)
[2022-10-03] MEDS: RIVAROXABAN 10MG TAB (XARELTO) PO SCH (08:27)
[2022-10-03] MEDS: DOCUSATE SODIUM 100MG CAPSULE PO SCH ×2 (09:00→20:35)
[2022-10-03] MEDS: oxyCODONE 5MG TAB PO PRN ×2 (10:13→20:35)
[2022-10-03] MEDS: ONDANSETRON 4MG 2ML VIAL IV PRN (10:13)
[2022-10-03] MEDS ORDERED: METOCLOPRAMIDE INJ 10MG/2ML VIAL IV ONE (10:25)
[2022-10-03 14:00] VITALS: BP 146/53
[2022-10-03 19:38] VITALS: BP 152/58
[2022-10-03] MEDS: GLUCOSE 4GM CHEW TABLET PO PRN (20:18)
[2022-10-04 04:11] VITALS: BP 154/58
[2022-10-04 06:34] LABS: BASO % 0.6 % (0.0-1.0); EOS # 0.2 10^3/uL (0.0-0.5); EOS % 3.5 % (0.0-3.0); HEMATOCRIT 25.5 % (36.0-47.0); HEMOGLOBIN 8.2 g/dl (12.0-15.5); LYMPH # 0.9 10^3/uL (1.5-5.0); LYMPH % 14.8 % (24.0-44.0); MEAN CORPUSCULAR HEMOGLOBIN 27.7 pg (27.0-33.0); MEAN CORPUSCULAR HGB CONC 32.2 g/dl (32.0-36.5); MEAN CORPUSCULAR VOLUME 86.1 fl (80.0-96.0); MONO # 0.6 10^3/uL (0.0-0.8); MONO % 9.1 % (2.0-8.0); NEUTROPHILS # 4.5 10^3/uL (1.5-8.5); PLATELET COUNT, AUTOMATED 149 10^3/uL (150-450); RED BLOOD COUNT 2.96 10^6/uL (4.00-5.40); WHITE BLOOD COUNT 6.3 10^3/uL (4.0-10.0)
[2022-10-04 06:53] LABS: BLOOD UREA NITROGEN 21 MG/DL (9-23); CALCIUM LEVEL 7.7 MG/DL (8.5-10.1); CARBON DIOXIDE LEVEL 26 MMOL/L (20-31); CHLORIDE LEVEL 106 MMOL/L (98-107); CREATININE FOR GFR 0.73 MG/DL (0.55-1.30); GLOMERULAR FILTRATION RATE > 60.0 (>51); GLUCOSE, FASTING 141 MG/DL (60-100); SODIUM LEVEL 141 MMOL/L (136-145)
[2022-10-04 08:51] LABS: CLOSTRIDIUM DIFFICILE PCR NEGATIVE (NEGATIVE)
[2022-10-04] MEDS: DOCUSATE SODIUM 100MG CAPSULE PO SCH ×2 (09:00→21:09)
[2022-10-04] MEDS: DULoxetine 30MG CAPSULE (CYMBALTA) PO SCH (09:13)
[2022-10-04] MEDS: FERROUS SULFATE 325MG TAB PO SCH (09:14)
[2022-10-04] MEDS: GABAPENTIN 300 MG CAP PO SCH ×2 (09:14→21:09)
[2022-10-04] MEDS: CETIRIZINE (ZyrTEC) 10 MG TAB PO SCH (09:14)
[2022-10-04] MEDS: RIVAROXABAN 10MG TAB (XARELTO) PO SCH (09:14)
[2022-10-04] MEDS: PANTOPRAZOLE 40MG TAB (PROTONIX) PO SCH (09:14)
[2022-10-04] MEDS: FAMOTIDINE 20 MG TAB PO SCH ×2 (09:14→21:09)
[2022-10-04] MEDS: oxyCODONE 5MG TAB PO PRN ×3 (09:14→21:08)
[2022-10-04] MEDS: ASCORBIC ACID 500 MG TAB PO SCH (09:15)
[2022-10-04] MEDS: INSULIN LISPRO (NovoLOG) PER UNIT SC SCH ×4 (09:18→21:00)
[2022-10-04] MEDS: LEVEMIR (INSULIN DETEMIR) 1 UNITS/0.01ML SC SCH ×2 (09:19→21:00)
[2022-10-04] MEDS: ONDANSETRON 4MG 2ML VIAL IV PRN (11:18)
[2022-10-04] MEDS: LOPERAMIDE 2 MG CAPLET PO PRN (12:17)
[2022-10-04 14:00] VITALS: BP 118/44
[2022-10-04] MEDS: GLUCOSE 4GM CHEW TABLET PO PRN (21:08)
[2022-10-04 22:00] VITALS: BP 133/53
[2022-10-05 04:51] VITALS: BP 126/60
[2022-10-05 07:23] LABS: BASO # 0.1 10^3/uL (0.0-0.2); BASO % 1.3 % (0.0-1.0); EOS # 0.3 10^3/uL (0.0-0.5); HEMATOCRIT 29.4 % (36.0-47.0); HEMOGLOBIN 9.2 g/dl (12.0-15.5); LYMPH # 1.2 10^3/uL (1.5-5.0); LYMPH % 19.5 % (24.0-44.0); MEAN CORPUSCULAR HEMOGLOBIN 27.4 pg (27.0-33.0); MEAN CORPUSCULAR HGB CONC 31.3 g/dl (32.0-36.5); MEAN CORPUSCULAR VOLUME 87.5 fl (80.0-96.0); MONO # 0.6 10^3/uL (0.0-0.8); MONO % 9.7 % (2.0-8.0); NEUTROPHILS # 4.1 10^3/uL (1.5-8.5); NEUTROPHILS % 63.9 % (36.0-66.0); PLATELET COUNT, AUTOMATED 208 10^3/uL (150-450); RED BLOOD COUNT 3.36 10^6/uL (4.00-5.40); WHITE BLOOD COUNT 6.4 10^3/uL (4.0-10.0)
[2022-10-05 07:41] LABS: BLOOD UREA NITROGEN 20 MG/DL (9-23); CALCIUM LEVEL 7.9 MG/DL (8.5-10.1); CARBON DIOXIDE LEVEL 28 MMOL/L (20-31); CHLORIDE LEVEL 107 MMOL/L (98-107); CREATININE FOR GFR 0.89 MG/DL (0.55-1.30); GLOMERULAR FILTRATION RATE > 60.0 (>51); GLUCOSE, FASTING 129 MG/DL (60-100); MAGNESIUM LEVEL 1.7 MG/DL (1.8-2.4); SODIUM LEVEL 141 MMOL/L (136-145)
[2022-10-05] MEDS: DULoxetine 30MG CAPSULE (CYMBALTA) PO SCH (09:38)
[2022-10-05] MEDS: GABAPENTIN 300 MG CAP PO SCH ×2 (09:38→19:46)
[2022-10-05] MEDS: FERROUS SULFATE 325MG TAB PO SCH (09:39)
[2022-10-05] MEDS: oxyCODONE 5MG TAB PO PRN ×3 (09:39→19:47)
[2022-10-05] MEDS: PANTOPRAZOLE 40MG TAB (PROTONIX) PO SCH (09:39)
[2022-10-05] MEDS: RIVAROXABAN 10MG TAB (XARELTO) PO SCH (09:40)
[2022-10-05] MEDS: ASCORBIC ACID 500 MG TAB PO SCH (09:40)
[2022-10-05] MEDS: FAMOTIDINE 20 MG TAB PO SCH ×2 (09:40→19:46)
[2022-10-05] MEDS: CETIRIZINE (ZyrTEC) 10 MG TAB PO SCH (09:40)
[2022-10-05] MEDS: LEVEMIR (INSULIN DETEMIR) 1 UNITS/0.01ML SC SCH ×2 (09:40→19:49)
[2022-10-05] MEDS: DOCUSATE SODIUM 100MG CAPSULE PO SCH (09:40)
[2022-10-05] MEDS ORDERED: MAGNESIUM OXIDE 400MG TAB (MAG-OX) PO ONE (09:40)
[2022-10-05] MEDS: INSULIN LISPRO (NovoLOG) PER UNIT SC SCH ×4 (09:41→19:45)
[2022-10-05] MEDS: LOPERAMIDE 2 MG CAPLET PO PRN ×3 (10:52→19:46)
[2022-10-05 14:00] VITALS: BP 131/44
[2022-10-05] MEDS ORDERED: OXYC-517 PO (16:44)
[2022-10-05] MEDS ORDERED: SENN18TA PO (16:44)
[2022-10-05] MEDS ORDERED: INSUDET SC (16:44)
[2022-10-05] MEDS ORDERED: FERR1TAB8 PO (16:44)
[2022-10-05] MEDS ORDERED: ASCO50TA PO (16:44)
[2022-10-05] MEDS ORDERED: XARE10TA PO (16:44)
[2022-10-05 20:45] VITALS: BP 126/42
[2022-10-06] MEDS: oxyCODONE 5MG TAB PO PRN ×3 (04:49→13:17)
[2022-10-06 05:24] VITALS: BP 119/43
[2022-10-06 07:00] LABS: BASO # 0.1 10^3/uL (0.0-0.2); BASO % 0.9 % (0.0-1.0); EOS # 0.3 10^3/uL (0.0-0.5); EOS % 4.6 % (0.0-3.0); HEMATOCRIT 25.8 % (36.0-47.0); HEMOGLOBIN 8.4 g/dl (12.0-15.5); LYMPH # 1.3 10^3/uL (1.5-5.0); LYMPH % 22.3 % (24.0-44.0); MEAN CORPUSCULAR HEMOGLOBIN 27.6 pg (27.0-33.0); MEAN CORPUSCULAR HGB CONC 32.6 g/dl (32.0-36.5); MEAN CORPUSCULAR VOLUME 84.9 fl (80.0-96.0); MONO # 0.6 10^3/uL (0.0-0.8); MONO % 11.1 % (2.0-8.0); NEUTROPHILS # 3.4 10^3/uL (1.5-8.5); NEUTROPHILS % 60.4 % (36.0-66.0); PLATELET COUNT, AUTOMATED 205 10^3/uL (150-450); RED BLOOD COUNT 3.04 10^6/uL (4.00-5.40); WHITE BLOOD COUNT 5.6 10^3/uL (4.0-10.0)
[2022-10-06 07:28] LABS: BLOOD UREA NITROGEN 19 MG/DL (9-23); CALCIUM LEVEL 7.6 MG/DL (8.5-10.1); CARBON DIOXIDE LEVEL 29 MMOL/L (20-31); CHLORIDE LEVEL 105 MMOL/L (98-107); CREATININE FOR GFR 0.88 MG/DL (0.55-1.30); GLOMERULAR FILTRATION RATE > 60.0 (>51); GLUCOSE, FASTING 192 MG/DL (60-100); MAGNESIUM LEVEL 1.7 MG/DL (1.8-2.4); SODIUM LEVEL 140 MMOL/L (136-145)
[2022-10-06] MEDS: LEVEMIR (INSULIN DETEMIR) 1 UNITS/0.01ML SC SCH (09:03)
[2022-10-06] MEDS: INSULIN LISPRO (NovoLOG) PER UNIT SC SCH ×3 (09:04→12:58)
[2022-10-06] MEDS: DULoxetine 30MG CAPSULE (CYMBALTA) PO SCH (09:04)
[2022-10-06] MEDS: CETIRIZINE (ZyrTEC) 10 MG TAB PO SCH (09:05)
[2022-10-06] MEDS: PANTOPRAZOLE 40MG TAB (PROTONIX) PO SCH (09:05)
[2022-10-06] MEDS: ASCORBIC ACID 500 MG TAB PO SCH (09:05)
[2022-10-06] MEDS: FAMOTIDINE 20 MG TAB PO SCH (09:06)
[2022-10-06] MEDS: RIVAROXABAN 10MG TAB (XARELTO) PO SCH (09:06)
[2022-10-06] MEDS: FERROUS SULFATE 325MG TAB PO SCH (09:06)
[2022-10-06] MEDS: GABAPENTIN 300 MG CAP PO SCH (09:06)
[2022-10-06] MEDS: LOPERAMIDE 2 MG CAPLET PO PRN (09:14)
[2022-10-14] MEDS ORDERED: ASPIRIN 81MG ENTERIC TABLET PO SCH (09:00)
== END 2022-10-06 13:30 | DRG 301 ==
LOC: EDBD 22:26 → M ED 22:26 → M ED INP 09-27 07:24 → M MS5PR 09-27 08:55 → OBSVTOIN 09-28 10:46
PROVIDERS: ADMIT Internal Medicine; ATTEND Internal Medicine
PROC: 0SR90JA Replacement of Right Hip Joint with Synthetic Substitute, Uncemented, Open Approach (ICD-10-PCS; principal; 2022-09-30 14:30)
PROC: 0QP604Z Removal of Internal Fixation Device from Right Upper Femur, Open Approach (ICD-10-PCS; 2022-09-30 14:30)
DX: S72.001K Fracture of unspecified part of neck of right femur, subsequent encounter for closed fracture with nonunion (principal); N17.9 Acute kidney failure, unspecified; S72.111A Displaced fracture of greater trochanter of right femur, initial encounter for closed fracture; E11.40 Type 2 diabetes mellitus with diabetic neuropathy, unspecified; E78.5 Hyperlipidemia, unspecified; F32.A Depression, unspecified; F41.9 Anxiety disorder, unspecified; G47.33 Obstructive sleep apnea (adult) (pediatric); I10 Essential (primary) hypertension; K21.9 Gastro-esophageal reflux disease without esophagitis; M35.3 Polymyalgia rheumatica; M79.7 Fibromyalgia; K57.30 Diverticulosis of large intestine without perforation or abscess without bleeding; M19.90 Unspecified osteoarthritis, unspecified site; Z88.8 Allergy status to other drugs, medicaments and biological substances; Z79.899 Other long term (current) drug therapy; Z79.82 Long term (current) use of aspirin; Z79.4 Long term (current) use of insulin; Z87.891 Personal history of nicotine dependence; M96.89 Other intraoperative and postprocedural complications and disorders of the musculoskeletal system; W18.30XA Fall on same level, unspecified, initial encounter; Y92.009 Unspecified place in unspecified non-institutional (private) residence as the place of occurrence of the external cause

== ENCOUNTER → 2022-10-20 | Outpatient (CLI) | payer OTHER ==
[~2022-10-20] MED LIST changes: +ASCO50TA PO; +ASPI-531 PO; +CETI-24 PO; +DULO1CAP5 PO; +FERR1TAB8 PO; +IBUP1TAB6 PO; +INSUDET SC; +SENN18TA PO; +XARE10TA PO
== END ==
LOC: M SOG 09:12
PROVIDERS: ATTEND Orthopaedic Surgery
DX: Z47.89 Encounter for other orthopedic aftercare (principal); Z53.8 Procedure and treatment not carried out for other reasons

== ENCOUNTER → 2022-11-16 | Outpatient (CLI) | payer OTHER ==
[~2022-11-16] MED LIST changes: +SENN-111 PO; -SENN18TA PO
== END ==
LOC: M SOG 08:26
PROVIDERS: ATTEND Orthopaedic Surgery
DX: Z47.89 Encounter for other orthopedic aftercare (principal)

== ENCOUNTER → 2022-11-17 | Outpatient (CLI) | payer OTHER | LOC: M RAD 13:48 | PROVIDERS: ATTEND Orthopaedic Surgery | DX: M79.89 Other specified soft tissue disorders (principal); Z96.41 Presence of insulin pump (external) (internal) ==

== ENCOUNTER 2023-04-24 18:32 | Observation (INO) | payer OTHER ==
[~2023-04-24] VITALS: Ht 167.6 cm; Wt 84.4 kg
[~2023-04-24 18:32] MED LIST changes: -GABA-283 PO; +GABA-284 PO
[2023-04-24 20:38] LABS: BASO # 0.1 10^3/uL (0.0-0.2); BASO % 0.4 % (0.0-1.0); HEMATOCRIT 41.5 % (36.0-47.0); LYMPH # 2.3 10^3/uL (1.5-5.0); MEAN CORPUSCULAR HEMOGLOBIN 27.3 pg (27.0-33.0); MEAN CORPUSCULAR HGB CONC 33.7 g/dl (32.0-36.5); MEAN CORPUSCULAR VOLUME 80.9 fl (80.0-96.0); MONO # 0.8 10^3/uL (0.0-0.8); MONO % 6.7 % (2.0-8.0); NEUTROPHILS # 8.2 10^3/uL (1.5-8.5); NEUTROPHILS % 72.3 % (36.0-66.0); PLATELET COUNT, AUTOMATED 288 10^3/uL (150-450); RED BLOOD COUNT 5.13 10^6/uL (4.00-5.40); WHITE BLOOD COUNT 11.4 10^3/uL (4.0-10.0)
[2023-04-24 21:12] LABS: BLOOD UREA NITROGEN 18 MG/DL (9-23); CALCIUM LEVEL 7.8 MG/DL (8.3-10.6); CARBON DIOXIDE LEVEL 24 MMOL/L (20-31); CHLORIDE LEVEL 107 MMOL/L (98-107); CREATININE FOR GFR 0.89 MG/DL (0.55-1.30); GLOMERULAR FILTRATION RATE > 60.0 (>45); GLUCOSE, FASTING 121 MG/DL (74-106); POTASSIUM SERUM 3.4 MMOL/L (3.5-5.1); SODIUM LEVEL 142 MMOL/L (136-145)
[2023-04-24] MEDS ORDERED: GABAPENTIN 300 MG CAP PO ONE (22:30)
[2023-04-25] MEDS ORDERED: VANCOMYCIN HCL 1,750 MG in IV FLUID PLACE HOLDER 1 EA IV ONE (01:25)
[2023-04-25 01:41] LABS: INR 1.2; PROTHROMBIN TIME 14.9 SECONDS (12.5-14.5)
[2023-04-25 01:42] LABS: PARTIAL THROMBOPLASTIN TIME 32.1 SECONDS (24.8-34.2)
[2023-04-25 01:46] LABS: ALBUMIN 2.1 G/DL (3.2-5.2); BILIRUBIN,DIRECT 0.5 MG/DL (<0.4); BILIRUBIN,TOTAL 1.2 MG/DL (0.3-1.2); TOTAL PROTEIN 5.4 G/DL (5.7-8.2)
[2023-04-25 01:55] LABS: RSV AMPLIFICATION NEGATIVE (NEGATIVE)
[2023-04-25] MEDS ORDERED: KETOROLAC 30 MG/ML 1ML VIAL IV ONE (02:00)
[2023-04-25] MEDS ORDERED: VANCOMYCIN HCL 1,000 MG, VIAL MATE ADAPTER 1 EACH in D5W 250 ML IV ONE (02:00)
[2023-04-25] MEDS ORDERED: VANCOMYCIN HCL 750 MG, VIAL MATE ADAPTER 1 EACH in D5W 250 ML IV ONE (03:00)
[2023-04-25] MEDS ORDERED: FLON1SPR (03:33)
[2023-04-25] MEDS ORDERED: COLE625T17 PO (03:33)
[2023-04-25] MEDS ORDERED: INSUHUMDS SC (03:33)
[2023-04-25] MEDS ORDERED: MAGN400T35 PO (03:33)
[2023-04-25] MEDS ORDERED: MUPI2OI EXT (03:33)
[2023-04-25] MEDS ORDERED: VITA100018 PO (03:33)
[2023-04-25] MEDS ORDERED: LOMO2.5T PO (03:33)
[2023-04-25] MEDS ORDERED: AMOX875T2 PO (03:33)
[2023-04-25] MEDS ORDERED: HOME MED LIST COMPLETE! XX SCH (03:35)
[2023-04-25] MEDS ORDERED: GLUCOSE 4GM CHEW TABLET PO PRN (03:35)
[2023-04-25] MEDS ORDERED: ALBUTEROL 90 MCG/ACT 8GM HFA INHALER INH PRN (03:35)
[2023-04-25] MEDS ORDERED: DEXTROSE 50% 50ML SYRINGE IV PRN (03:35)
[2023-04-25] MEDS ORDERED: ACETAMINOPHEN TAB 650MG DOSE (2X325MG) PO PRN (03:35)
[2023-04-25] MEDS ORDERED: GLUCAGON INJ 1MG VIAL SC PRN (03:35)
[2023-04-25] MEDS ORDERED: POTASSIUM CHLORIDE 10% LIQ 20MEQ/15ML UDC PO ONE (04:00)
[2023-04-25] MEDS: LR 1,000 ML IV SCH ×2 (04:14→15:11)
[2023-04-25] MEDS: HEPARIN SOD (PORCINE) 5000UNITS/ML 1ML VIAL/SYRINGE SC SCH ×3 (06:17→21:03)
[2023-04-25] MEDS: HYDROMORPHONE HCL 0.5 MG/ 0.5 ML SYRINGE IV PRN (06:18)
[2023-04-25] MEDS: ASPIRIN 81MG ENTERIC TABLET PO SCH (08:23)
[2023-04-25] MEDS: PANTOPRAZOLE 40MG TAB (PROTONIX) PO SCH (08:23)
[2023-04-25] MEDS: INSULIN LISPRO (NovoLOG) PER UNIT SC SCH ×4 (08:23→21:00)
[2023-04-25] MEDS: CYANOCOBALAMIN 500 MCG TAB PO SCH (09:00)
[2023-04-25] MEDS: COLESEVELAM 625 MG TAB (WELCHOL) PO SCH ×3 (11:27→21:04)
[2023-04-25] MEDS: VANCOMYCIN HCL 1,000 MG, VIAL MATE ADAPTER 1 EACH in NS 250 ML IV SCH (11:27)
[2023-04-25] MEDS: SOLIFENACIN 5 MG TAB PO SCH (11:27)
[2023-04-25] MEDS: FAMOTIDINE 20 MG TAB PO SCH ×2 (13:31→21:04)
[2023-04-25] MEDS: ASCORBIC ACID 500 MG TAB PO SCH (13:32)
[2023-04-25] MEDS: CETIRIZINE (ZyrTEC) 10 MG TAB PO SCH (13:35)
[2023-04-25] MEDS: GABAPENTIN 300 MG CAP PO PRN (14:57)
[2023-04-25 17:07] VITALS: BP 110/75; TEMP 97.5; O2SAT 90
[2023-04-25] MEDS: FLUTICASONE PROP 0.05% NASAL SPRAY 16 GM (FLONASE) SCH (17:13)
[2023-04-25] MEDS: MUPIROCIN 2% OINT 22 GM TUBE EXT SCH ×2 (17:13→21:03)
[2023-04-25 20:14] VITALS: BP 119/74; TEMP 97.3; O2SAT 94
[2023-04-26] MEDS: LR 1,000 ML IV SCH ×3 (00:07→23:54)
[2023-04-26] MEDS: HYDROMORPHONE HCL 0.5 MG/ 0.5 ML SYRINGE IV PRN ×3 (00:07→12:28)
[2023-04-26] MEDS: VANCOMYCIN HCL 1,000 MG, VIAL MATE ADAPTER 1 EACH in NS 250 ML IV SCH (00:07)
[2023-04-26] MEDS: HEPARIN SOD (PORCINE) 5000UNITS/ML 1ML VIAL/SYRINGE SC SCH ×3 (06:05→22:16)
[2023-04-26 06:40] VITALS: BP 113/49; TEMP 97.8; O2SAT 96
[2023-04-26 06:43] LABS: HEMATOCRIT 38.9 % (36.0-47.0); HEMOGLOBIN 13.1 g/dl (12.0-15.5); MEAN CORPUSCULAR HEMOGLOBIN 27.6 pg (27.0-33.0); MEAN CORPUSCULAR HGB CONC 33.7 g/dl (32.0-36.5); MEAN CORPUSCULAR VOLUME 81.9 fl (80.0-96.0); PLATELET COUNT, AUTOMATED 214 10^3/uL (150-450); RED BLOOD COUNT 4.75 10^6/uL (4.00-5.40); WHITE BLOOD COUNT 8.7 10^3/uL (4.0-10.0)
[2023-04-26] MEDS: INSULIN LISPRO (NovoLOG) PER UNIT SC SCH ×4 (07:30→21:00)
[2023-04-26 07:43] LABS: ALBUMIN 1.6 G/DL (3.2-5.2); ALKALINE PHOSPHATASE 191 U/L (46-116); ALT/SGPT 25 U/L (7.0-40); AST/SGOT 26 U/L (<34); BILIRUBIN,TOTAL 0.8 MG/DL (0.3-1.2); BLOOD UREA NITROGEN 20 MG/DL (9-23); CARBON DIOXIDE LEVEL 23 MMOL/L (20-31); CHLORIDE LEVEL 111 MMOL/L (98-107); CREATININE FOR GFR 0.83 MG/DL (0.55-1.30); GLOMERULAR FILTRATION RATE > 60.0 (>45); GLUCOSE, FASTING 91 MG/DL (74-106); POTASSIUM SERUM 3.2 MMOL/L (3.5-5.1); SODIUM LEVEL 142 MMOL/L (136-145); TOTAL PROTEIN 4.4 G/DL (5.7-8.2)
[2023-04-26] MEDS: FLUTICASONE PROP 0.05% NASAL SPRAY 16 GM (FLONASE) SCH (09:13)
[2023-04-26] MEDS: SOLIFENACIN 5 MG TAB PO SCH (09:14)
[2023-04-26] MEDS: FAMOTIDINE 20 MG TAB PO SCH ×2 (09:14→22:16)
[2023-04-26] MEDS: ASCORBIC ACID 500 MG TAB PO SCH (09:14)
[2023-04-26] MEDS: PANTOPRAZOLE 40MG TAB (PROTONIX) PO SCH (09:14)
[2023-04-26] MEDS: CYANOCOBALAMIN 500 MCG TAB PO SCH (09:14)
[2023-04-26] MEDS: COLESEVELAM 625 MG TAB (WELCHOL) PO SCH ×3 (09:14→22:16)
[2023-04-26] MEDS: CETIRIZINE (ZyrTEC) 10 MG TAB PO SCH (09:14)
[2023-04-26] MEDS: ASPIRIN 81MG ENTERIC TABLET PO SCH (09:14)
[2023-04-26] MEDS: MUPIROCIN 2% OINT 22 GM TUBE EXT SCH ×2 (09:15→22:16)
[2023-04-26] MEDS: VANCOMYCIN HCL 750 MG, VIAL MATE ADAPTER 1 EACH in D5W 250 ML IV SCH ×2 (12:38→13:45)
[2023-04-26 14:00] VITALS: BP 120/59; TEMP 97.7; O2SAT 91
[2023-04-26] MEDS ORDERED: POTASSIUM CHLORIDE 10MEQ SR TABLET PO ONE (18:00)
[2023-04-26 20:00] VITALS: BP 133/66; TEMP 96.8; O2SAT 94
[2023-04-27] MEDS: LR 1,000 ML IV SCH ×2 (05:59→15:50)
[2023-04-27] MEDS: HEPARIN SOD (PORCINE) 5000UNITS/ML 1ML VIAL/SYRINGE SC SCH ×3 (05:59→20:43)
[2023-04-27 06:25] LABS: HEMATOCRIT 37.8 % (36.0-47.0); HEMOGLOBIN 12.6 g/dl (12.0-15.5); MEAN CORPUSCULAR HEMOGLOBIN 27.8 pg (27.0-33.0); MEAN CORPUSCULAR HGB CONC 33.3 g/dl (32.0-36.5); MEAN CORPUSCULAR VOLUME 83.3 fl (80.0-96.0); PLATELET COUNT, AUTOMATED 196 10^3/uL (150-450); RED BLOOD COUNT 4.54 10^6/uL (4.00-5.40); WHITE BLOOD COUNT 7.3 10^3/uL (4.0-10.0)
[2023-04-27 06:40] VITALS: BP 130/70; TEMP 97.5; O2SAT 95
[2023-04-27 06:52] LABS: BLOOD UREA NITROGEN 16 MG/DL (9-23); CALCIUM LEVEL 7.3 MG/DL (8.3-10.6); CARBON DIOXIDE LEVEL 24 MMOL/L (20-31); CHLORIDE LEVEL 113 MMOL/L (98-107); CREATININE FOR GFR 0.83 MG/DL (0.55-1.30); GLOMERULAR FILTRATION RATE > 60.0 (>45); GLUCOSE, FASTING 86 MG/DL (74-106); POTASSIUM SERUM 3.7 MMOL/L (3.5-5.1); SODIUM LEVEL 145 MMOL/L (136-145)
[2023-04-27] MEDS: INSULIN LISPRO (NovoLOG) PER UNIT SC SCH ×4 (07:30→20:35)
[2023-04-27] MEDS: COLESEVELAM 625 MG TAB (WELCHOL) PO SCH ×3 (09:34→20:43)
[2023-04-27] MEDS: CYANOCOBALAMIN 500 MCG TAB PO SCH (09:34)
[2023-04-27] MEDS: SOLIFENACIN 5 MG TAB PO SCH (09:35)
[2023-04-27] MEDS: CETIRIZINE (ZyrTEC) 10 MG TAB PO SCH (09:36)
[2023-04-27] MEDS: ASPIRIN 81MG ENTERIC TABLET PO SCH (09:36)
[2023-04-27] MEDS: ASCORBIC ACID 500 MG TAB PO SCH (09:36)
[2023-04-27] MEDS: FAMOTIDINE 20 MG TAB PO SCH ×2 (09:36→20:43)
[2023-04-27] MEDS: PANTOPRAZOLE 40MG TAB (PROTONIX) PO SCH (09:37)
[2023-04-27] MEDS: FLUTICASONE PROP 0.05% NASAL SPRAY 16 GM (FLONASE) SCH (09:38)
[2023-04-27] MEDS: MUPIROCIN 2% OINT 22 GM TUBE EXT SCH ×2 (09:38→20:36)
[2023-04-27 14:10] VITALS: BP 120/77; TEMP 97.3; O2SAT 95
[2023-04-27] MEDS ORDERED: LIDOCAINE 1% MDV 20ML VIAL As Ordered ONE (14:33)
[2023-04-27] MEDS: HYDROMORPHONE HCL 0.5 MG/ 0.5 ML SYRINGE IV PRN (15:50)
[2023-04-27] MEDS: VANCOMYCIN HCL 750 MG, VIAL MATE ADAPTER 1 EACH in D5W 250 ML IV SCH ×2 (15:51→18:50)
[2023-04-27] MEDS ORDERED: SODIUM CHLORIDE 0.9% INJ 10 ML SYR IV PRN (17:20)
[2023-04-27] MEDS: SODIUM CHLORIDE 0.9% INJ 10 ML SYR IV SCH (17:46)
[2023-04-27 20:27] VITALS: BP 137/62; TEMP 97.3; O2SAT 96
[2023-04-28] MEDS: HYDROMORPHONE HCL 0.5 MG/ 0.5 ML SYRINGE IV PRN ×4 (02:32→17:58)
[2023-04-28] MEDS: LR 1,000 ML IV SCH ×3 (02:32→20:51)
[2023-04-28] MEDS: HEPARIN SOD (PORCINE) 5000UNITS/ML 1ML VIAL/SYRINGE SC SCH ×3 (06:18→20:51)
[2023-04-28] MEDS: SODIUM CHLORIDE 0.9% INJ 10 ML SYR IV SCH ×2 (06:18→17:59)
[2023-04-28 06:46] VITALS: BP 142/69; TEMP 97.3; O2SAT 96
[2023-04-28 06:52] LABS: HEMATOCRIT 37.1 % (36.0-47.0); MEAN CORPUSCULAR HEMOGLOBIN 27.3 pg (27.0-33.0); MEAN CORPUSCULAR HGB CONC 32.3 g/dl (32.0-36.5); MEAN CORPUSCULAR VOLUME 84.5 fl (80.0-96.0); PLATELET COUNT, AUTOMATED 193 10^3/uL (150-450); RED BLOOD COUNT 4.39 10^6/uL (4.00-5.40); WHITE BLOOD COUNT 8.5 10^3/uL (4.0-10.0)
[2023-04-28 07:21] LABS: BLOOD UREA NITROGEN 13 MG/DL (9-23); CALCIUM LEVEL 7.1 MG/DL (8.3-10.6); CARBON DIOXIDE LEVEL 21 MMOL/L (20-31); CHLORIDE LEVEL 115 MMOL/L (98-107); GLOMERULAR FILTRATION RATE > 60.0 (>45); GLUCOSE, FASTING 103 MG/DL (74-106); POTASSIUM SERUM 3.4 MMOL/L (3.5-5.1); SODIUM LEVEL 142 MMOL/L (136-145)
[2023-04-28] MEDS: INSULIN LISPRO (NovoLOG) PER UNIT SC SCH ×4 (08:38→20:42)
[2023-04-28] MEDS: PANTOPRAZOLE 40MG TAB (PROTONIX) PO SCH (08:39)
[2023-04-28] MEDS: COLESEVELAM 625 MG TAB (WELCHOL) PO SCH ×3 (08:39→20:51)
[2023-04-28] MEDS: MUPIROCIN 2% OINT 22 GM TUBE EXT SCH ×2 (08:39→20:51)
[2023-04-28] MEDS: FAMOTIDINE 20 MG TAB PO SCH ×2 (08:39→20:51)
[2023-04-28] MEDS: ASCORBIC ACID 500 MG TAB PO SCH (08:39)
[2023-04-28] MEDS: CETIRIZINE (ZyrTEC) 10 MG TAB PO SCH (08:39)
[2023-04-28] MEDS: CYANOCOBALAMIN 500 MCG TAB PO SCH (08:39)
[2023-04-28] MEDS: ASPIRIN 81MG ENTERIC TABLET PO SCH (08:39)
[2023-04-28] MEDS: SOLIFENACIN 5 MG TAB PO SCH (08:40)
[2023-04-28] MEDS: FLUTICASONE PROP 0.05% NASAL SPRAY 16 GM (FLONASE) SCH (08:40)
[2023-04-28] MEDS: VANCOMYCIN HCL 750 MG, VIAL MATE ADAPTER 1 EACH in D5W 250 ML IV SCH ×2 (11:30→14:00)
[2023-04-28 11:40] LABS: VANCOMYCIN LEVEL TROUGH 15.8 UG/ML (10.0-20.0)
[2023-04-28] MEDS: GABAPENTIN 300 MG CAP PO PRN (11:44)
[2023-04-28 11:52] LABS: ANTI-STREPTOLYSIN O QUANT 221.2 IU/ML (<195)
[2023-04-28 14:17] VITALS: BP 124/65; TEMP 96.8; O2SAT 96
[2023-04-28 19:57] VITALS: BP 125/66; TEMP 97.3; O2SAT 96
[2023-04-28] MEDS: NYSTATIN 100,000 UNITS/GM TOPICAL PWD 15GM TOP SCH (21:50)
[2023-04-29] MEDS: HEPARIN SOD (PORCINE) 5000UNITS/ML 1ML VIAL/SYRINGE SC SCH ×2 (06:35→14:15)
[2023-04-29] MEDS: SODIUM CHLORIDE 0.9% INJ 10 ML SYR IV SCH ×2 (06:35→17:22)
[2023-04-29 06:39] VITALS: BP 124/65; TEMP 97.5; O2SAT 96
[2023-04-29] MEDS: INSULIN LISPRO (NovoLOG) PER UNIT SC SCH ×3 (07:30→17:30)
[2023-04-29 08:00] LABS: BLOOD UREA NITROGEN 14 MG/DL (9-23); CALCIUM LEVEL 7.6 MG/DL (8.3-10.6); CARBON DIOXIDE LEVEL 21 MMOL/L (20-31); CHLORIDE LEVEL 111 MMOL/L (98-107); CREATININE FOR GFR 0.81 MG/DL (0.55-1.30); GLOMERULAR FILTRATION RATE > 60.0 (>45); GLUCOSE, FASTING 80 MG/DL (74-106); POTASSIUM SERUM 3.9 MMOL/L (3.5-5.1); SODIUM LEVEL 142 MMOL/L (136-145)
[2023-04-29 08:08] LABS: HEMATOCRIT 42.8 % (36.0-47.0); MEAN CORPUSCULAR HEMOGLOBIN 27.6 pg (27.0-33.0); MEAN CORPUSCULAR HGB CONC 32.7 g/dl (32.0-36.5); MEAN CORPUSCULAR VOLUME 84.3 fl (80.0-96.0); PLATELET COUNT, AUTOMATED 255 10^3/uL (150-450); RED BLOOD COUNT 5.08 10^6/uL (4.00-5.40); WHITE BLOOD COUNT 9.9 10^3/uL (4.0-10.0)
[2023-04-29] MEDS: CYANOCOBALAMIN 500 MCG TAB PO SCH (09:39)
[2023-04-29] MEDS: FAMOTIDINE 20 MG TAB PO SCH (09:40)
[2023-04-29] MEDS: ASPIRIN 81MG ENTERIC TABLET PO SCH (09:40)
[2023-04-29] MEDS: SOLIFENACIN 5 MG TAB PO SCH (09:40)
[2023-04-29] MEDS: FLUTICASONE PROP 0.05% NASAL SPRAY 16 GM (FLONASE) SCH (09:40)
[2023-04-29] MEDS: COLESEVELAM 625 MG TAB (WELCHOL) PO SCH ×2 (09:40→17:20)
[2023-04-29] MEDS: ASCORBIC ACID 500 MG TAB PO SCH (09:40)
[2023-04-29] MEDS: HYDROMORPHONE HCL 0.5 MG/ 0.5 ML SYRINGE IV PRN ×3 (09:40→17:21)
[2023-04-29] MEDS: CETIRIZINE (ZyrTEC) 10 MG TAB PO SCH (09:40)
[2023-04-29] MEDS: PANTOPRAZOLE 40MG TAB (PROTONIX) PO SCH (09:40)
[2023-04-29] MEDS: MUPIROCIN 2% OINT 22 GM TUBE EXT SCH (09:41)
[2023-04-29] MEDS: NYSTATIN 100,000 UNITS/GM TOPICAL PWD 15GM TOP SCH (09:41)
[2023-04-29] MEDS: ONDANSETRON 4MG 2ML VIAL IV PRN ×2 (09:47→17:21)
[2023-04-29] MEDS ORDERED: LINE1TAB6 PO (12:16)
[2023-04-29] MEDS ORDERED: LOMOTIL 2.5MG/0.025MG TABLET PO PRN (12:40)
[2023-04-29 13:54] VITALS: BP 132/64; TEMP 97.3; O2SAT 92
[2023-04-29] MEDS ORDERED: LOMOTIL 2.5MG/0.025MG TABLET PO ONE (14:00)
[2023-04-29] MEDS: VANCOMYCIN HCL 750 MG, VIAL MATE ADAPTER 1 EACH in D5W 250 ML IV SCH ×2 (14:14)
[2023-04-29] MEDS ORDERED: AMOX875T2 PO (15:18)
[2023-04-29] MEDS ORDERED: BACT800T5 PO (15:18)
[2023-04-29] MEDS ORDERED: LACTOBACILLUS ACIDOPHILUS CAP (BACID) PO SCH (18:00)
[2023-04-29] MEDS ORDERED: BACTRIM 160MG/800MG DS TAB PO ONE (18:00)
[2023-04-29] MEDS ORDERED: AUGMENTIN 875 MG TAB PO ONE (18:00)
[2023-04-29] MEDS ORDERED: LINEZOLID 600MG TABLET (ZYVOX) PO SCH (21:00)
[2023-04-30] MEDS ORDERED: AUGMENTIN 875 MG TAB PO SCH (09:00)
[2023-04-30] MEDS ORDERED: BACTRIM 160MG/800MG DS TAB PO SCH (09:00)
== END 2023-04-29 19:00 | disposition home or self-care (01) ==
LOC: EDBD 18:32 → M ED 18:32 → M ED INP 18:33 → M MS5PR 04-25 17:00
PROVIDERS: ADMIT Internal Medicine; ATTEND Internal Medicine
DX: L03.115 Cellulitis of right lower limb (principal); E11.620 Type 2 diabetes mellitus with diabetic dermatitis; F41.9 Anxiety disorder, unspecified; E78.00 Pure hypercholesterolemia, unspecified; E78.5 Hyperlipidemia, unspecified; J45.909 Unspecified asthma, uncomplicated; K21.9 Gastro-esophageal reflux disease without esophagitis; Z79.2 Long term (current) use of antibiotics; Z79.82 Long term (current) use of aspirin; Z79.4 Long term (current) use of insulin; Z88.8 Allergy status to other drugs, medicaments and biological substances; N32.81 Overactive bladder; C7B.02 Secondary carcinoid tumors of liver; G60.9 Hereditary and idiopathic neuropathy, unspecified; Z79.899 Other long term (current) drug therapy; R19.7 Diarrhea, unspecified; D51.9 Vitamin B12 deficiency anemia, unspecified; Z87.891 Personal history of nicotine dependence
CPT/HCPCS: 36415; 36569; 36591; 74176; 76937; 80048; 80053; 80076; 80202; 81001; 83605; 83690; 83880; 85025; 85027; 85610; 85730; 86063; 87040; 87086; 87507; 87631; 87641; 93971; 96365; 96366; 96372; 96375; 96376; 97110; 97116; 97161; 97165; 97530; 97535; 99284; C1751; J1170; J1815; J1885; J2405; J3370